=== PATIENT | female | born 1965 | race Caucasian/White ===

== ENCOUNTER 2022-07-01 17:33 | Inpatient (IN) | payer MEDICAID ==
[~2022-07-01] VITALS: Ht 165.1 cm; Wt 68.9 kg
[~2022-07-01 17:33] MED LIST: IOHEXOL-350 100 ML VIAL IV ONE
--- NOTE | 2022-07-01 19:40 | NUR ---
MICHAELA FROM [facility] C/O +SI NEEDS PSYCH EVAL. PATIENT PLACED COMFORTABLY IN BED. VITALS CHECKED. PATIENT IS COMPLAINING OF HEARING VOICES AND STOMACH PAIN. AWARE
[2022-07-01] MEDS ORDERED: IPRATROPIUM NEB FS 0.5 MG/2.5 ML AMPUL.NEB NEB ONE (20:30)
[2022-07-01] MEDS ORDERED: ALBUTEROL FS 2.5 MG/3 ML VIAL.NEB NEB ONE (20:30)
[2022-07-01] MEDS ORDERED: methylPREDNISolone SOD SUCC 125 MG/2ML VIAL IV ONE (20:30)
--- NOTE | 2022-07-01 20:51 | NUR ---
TRUSTEE OF ESTATE AT PT'S BEDSIDE
[2022-07-01 21:13] LABS: BASOPHILS # (AUTO) 0.1 K/uL (0.0-0.2); EOSINOPHILS % (AUTO) 2.3 % (0.0-6.0); HEMATOCRIT 24 % (33-45); HEMOGLOBIN 7.5 g/dL (11.5-14.8); LYMPHOCYTES # (AUTO) 2.8 K/uL (0.8-4.8); LYMPHOCYTES % (AUTO) 43.6 % (20.0-44.0); MEAN CORPUSCULAR HGB CONC 31 g/dl (31.0-36.0); MEAN CORPUSCULAR VOLUME 94 fL (82-100); MONOCYTES # (AUTO) 0.9 K/uL (0.1-1.30); MONOCYTES % (AUTO) 13.2 % (2.0-12.0); NEUTROPHILS # (AUTO) 2.6 K/uL (1.8-8.9); NEUTROPHILS % (AUTO) 39.9 % (43.0-81.0); PLATELET COUNT (AUTO) 641 K/uL (150-450); RED BLOOD CELL COUNT(AUTO) 2.53 MIL/uL (4.0-5.2); WHITE BLOOD COUNT (AUTO) 6.5 K/uL (4.3-11.0)
[2022-07-01 21:19] LABS: CALCIUM, SERUM 8.5 mg/dL (8.5-10.1); CARBON DIOXIDE 30 mmol/L (21-32); CHLORIDE 105 mmol/L (98-107); CREATININE 1.1 mg/dL (0.6-1.3); GLUCOSE 84 mg/dL (74-106); POTASSIUM 3.9 mmol/L (3.5-5.1); SODIUM SERUM 138 mmol/L (136-145); UREA NITROGEN, BLOOD 16 mg/dL (7-18)
[2022-07-01] MEDS ORDERED: methylPREDNISolone SOD SUCC 125 MG/2ML VIAL ONE (21:21)
[2022-07-01 21:25] LABS: ALANINE AMINOTRANSFERASE 8 U/L (12-78); ALBUMIN 1.5 g/dL (3.4-5.0); ALKALINE PHOSPHATASE 97 U/L (46-116); ASPARTATE AMINOTRANSFERASE 16 U/L (15-37); BILIRUBIN,DIRECT 0.1 mg/dL (0.0-0.2); BILIRUBIN,TOTAL 0.2 mg/dL (0.2-1.0); TOTAL PROTEIN, SERUM 7.2 g/dL (6.4-8.2)
--- NOTE | 2022-07-01 21:41 | NUR ---
IV CANNULA ON LEFT FA G22. IV MEDS GIVEN
[2022-07-01] MEDS ORDERED: CEFTRIAXONE 1GM BAG (ER ONLY) 50 ML IV ONE (21:43)
[2022-07-01] MEDS ORDERED: CEFTRIAXONE 1 G in IV D5W 50 ML IV ONE (22:00)
--- NOTE | 2022-07-01 22:12 | NUR ---
COVID SWAB AND INFLUENZA SWAB DONE AND SENT TO LAB
[2022-07-01] MEDS ORDERED: IPRATROPIUM NEB FS 0.5 MG/2.5 ML AMPUL.NEB ONE (22:22)
[2022-07-01] MEDS ORDERED: ALBUTEROL FS 2.5 MG/3 ML VIAL.NEB ONE (22:22)
--- NOTE | 2022-07-01 22:30 | NUR ---
RT AT BEDSIDE
[2022-07-01] MEDS ORDERED: MAG HYDROX/AL HYDROX/SIMETH 30 ML UDC PO PRN (23:30)
[2022-07-01] MEDS ORDERED: Z GUARD REMEDY 4 OZ OINT TP PRN (23:30)
[2022-07-01] MEDS ORDERED: ACETAMINOPHEN 325 MG TABLET PO PRN (23:30)
[2022-07-01] MEDS ORDERED: ALBUTEROL FS 2.5 MG/0.5 ML VIAL.NEB NEB PRN (23:30)
[2022-07-01] MEDS ORDERED: ZOLPIDEM TARTRATE 5 MG TABLET PO PRN (23:30)
[2022-07-01] MEDS ORDERED: ONDANSETRON HCL/PF 4 MG/2 ML VIAL IVP PRN (23:30)
[2022-07-01] MEDS ORDERED: IPRATROPIUM NEB FS 0.5 MG/2.5 ML AMPUL.NEB NEB PRN (23:30)
[2022-07-01] MEDS ORDERED: MAGNESIUM HYDROXIDE 30 ML UDC PO PRN (23:30)
--- NOTE | 2022-07-02 00:05 | NUR ---
IV CANNULA G20 INSERTED ON RIGHT WRIST
[2022-07-02] MEDS ORDERED: LIDOCAINE VISCOUS 2% UD 15 ML UDC ONE (00:09)
[2022-07-02] MEDS ORDERED: MAG HYDROX/AL HYDROX/SIMETH 30 ML UDC PO ONE (00:30)
[2022-07-02] MEDS ORDERED: LIDOCAINE VISCOUS 2% UD 15 ML UDC MM ONE (00:30)
[2022-07-02] MEDS ORDERED: IPRATROPIUM NEB FS 0.5 MG/2.5 ML AMPUL.NEB NEB ONE (00:30)
[2022-07-02] MEDS ORDERED: ALBUTEROL FS 2.5 MG/3 ML VIAL.NEB NEB ONE (00:30)
[2022-07-02 00:36] LABS: ABG BASE EXCESS 2.6 mmol/L; ABG PCO2 35.2 mmHg (35.0-45.0); ABG PH 7.487 (7.350-7.450); ABG PO2 61.4 mmHg (75.0-100.0); COHb 0.1 % (0.5-1.5); MetHb 0.4 % (0.0-1.5); O2Hb 90.9 % (94.0-97.0); SITE, ABG Left Radial; VENT MODE, BG 3L NASAL CANNULA
[2022-07-02] MEDS ORDERED: ALBUTEROL FS 2.5 MG/3 ML VIAL.NEB ONE (00:42)
[2022-07-02] MEDS ORDERED: IV NS 0.9% 1,000 ML BAG IV ONE (01:00)
--- NOTE | 2022-07-02 01:29 | NUR ---
URINE SPECIMEN SENT TO LAB
[2022-07-02] MEDS ORDERED: FAMOTIDINE/PF INJ 20 MG/2 ML VIAL IV ONE ×2 (01:30→01:32)
[2022-07-02] MEDS ORDERED: LEVOFLOXACIN 500 MG /D5W 100ML 100 ML IV ONE (01:32)
[2022-07-02 01:45] LABS: ALBUMIN 1.6 g/dL (3.4-5.0); BILIRUBIN,DIRECT 0.1 mg/dL (0.0-0.2); BILIRUBIN,TOTAL 0.2 mg/dL (0.2-1.0); CALCIUM, SERUM 8.6 mg/dL (8.5-10.1); CREATININE 1.2 mg/dL (0.6-1.3); PHOSPHORUS 2.7 mg/dL (2.5-4.9); POTASSIUM 3.6 mmol/L (3.5-5.1); TOTAL PROTEIN, SERUM 7.8 g/dL (6.4-8.2)
[2022-07-02] MEDS ORDERED: LEVOFLOXACIN 500 MG /D5W 100ML 500 MG in PREMIX 1 EA IV SCH (02:00)
[2022-07-02 02:13] LABS: BILIRUBIN,URINE NEGATIVE (NEGATIVE); COLOR,URINE YELLOW (YELLOW); LEUKOCYTE ESTERASE ,URINE NEGATIVE (NEGATIVE); NITRITE, URINE NEGATIVE (NEGATIVE); PROTEIN,URINE NEGATIVE (NEGATIVE); UGLUCOSE NEGATIVE (NEGATIVE); UROBILINOGEN,URINE 0.2 EU/dL (0.2)
[2022-07-02] MEDS ORDERED: DEXTROSE 50%-WATER 50 ML DISP.SYRIN IV PRN (02:30)
[2022-07-02 02:31] LABS: BACTERIA,URINE Rare /HPF (None Seen); RBC,URINE 0-2 /HPF (0-2); SQUAMOUS EPITHELIAL CELL,UR Many /HPF (None Seen)
[2022-07-02] MEDS ORDERED: methylPREDNISolone SOD SUCC 40 MG/ML VIAL ONE ×3 (04:22→18:17)
[2022-07-02] MEDS ORDERED: methylPREDNISolone SOD SUCC 40 MG/ML VIAL IV SCH (05:00)
[2022-07-02 05:01] LABS: BAND % (MANUAL) 2 % (0.0-5.0); BASOPHILS % (MANUAL) 0 % (0.0-2.0); EOSINOPHILS % (MANUAL) 1 % (0-4); LYMPHOCYTES % (MANUAL) 47 % (16-48); MONOCYTES % (MANUAL) 7 % (0-11.0); NEUTROPHILS % (MANUAL) 43 (42-76)
[2022-07-02 05:10] LABS: BASOPHILS % (AUTO) 0.3 % (0.0-2.0); HEMATOCRIT 24 % (33-45); HEMOGLOBIN 7.6 g/dL (11.5-14.8); LYMPHOCYTES # (AUTO) 0.3 K/uL (0.8-4.8); LYMPHOCYTES % (AUTO) 4.5 % (20.0-44.0); MEAN CORPUSCULAR HGB CONC 32 g/dl (31.0-36.0); MEAN CORPUSCULAR VOLUME 93 fL (82-100); MONOCYTES # (AUTO) 0.1 K/uL (0.1-1.30); MONOCYTES % (AUTO) 1.2 % (2.0-12.0); NEUTROPHILS # (AUTO) 5.8 K/uL (1.8-8.9); PLATELET COUNT (AUTO) 560 K/uL (150-450); RED BLOOD CELL COUNT(AUTO) 2.57 MIL/uL (4.0-5.2); WHITE BLOOD COUNT (AUTO) 6.2 K/uL (4.3-11.0)
[2022-07-02] MEDS: BLOOD SUGAR DIAGNOSTIC 1 EACH STRIP IN SCH ×3 (07:59→18:30)
[2022-07-02] MEDS ORDERED: FERR325T23 PO (08:00)
[2022-07-02] MEDS ORDERED: MAGN400O6 PO (08:00)
[2022-07-02] MEDS ORDERED: MULT-447 PO (08:00)
[2022-07-02] MEDS ORDERED: OLAN5TAB3 PO (08:00)
[2022-07-02] MEDS ORDERED: BISA10SU11 RC (08:00)
[2022-07-02] MEDS ORDERED: IPRA3AMP23 IH (08:00)
[2022-07-02] MEDS ORDERED: INSU100V39 SQ (08:00)
[2022-07-02] MEDS ORDERED: CLON1TAB12 PO (08:00)
[2022-07-02] MEDS ORDERED: NICO-676 TD (08:00)
[2022-07-02] MEDS ORDERED: DOCU-141 PO (08:00)
[2022-07-02] MEDS ORDERED: ACET-2605 PO (08:00)
[2022-07-02] MEDS ORDERED: NA P133E RC (08:00)
[2022-07-02] MEDS ORDERED: CRAN425C6 PO (08:00)
[2022-07-02] MEDS ORDERED: MIDO10TA PO (08:00)
[2022-07-02] MEDS ORDERED: ATOR40TA PO (08:00)
[2022-07-02] MEDS ORDERED: ACET-868 PO (08:00)
[2022-07-02] MEDS ORDERED: MAG30ORA PO (08:00)
[2022-07-02] MEDS ORDERED: ESCI10TA PO (08:00)
[2022-07-02] MEDS ORDERED: MELA5TAB PO (08:00)
[2022-07-02] MEDS ORDERED: OLAN7.5T3 PO (08:00)
[2022-07-02] MEDS ORDERED: METO25TA20 PO (08:00)
[2022-07-02] MEDS ORDERED: MENT71OI2 TP (08:00)
[2022-07-02] MEDS ORDERED: QUET25TA PO (08:01)
[2022-07-02] MEDS ORDERED: PREG50CA PO (08:01)
[2022-07-02] MEDS ORDERED: ONDA4TAB5 PO (08:01)
[2022-07-02] MEDS ORDERED: PANT20TA2 PO (08:01)
[2022-07-02] MEDS ORDERED: SUCR1TAB PO (08:01)
[2022-07-02] MEDS ORDERED: OXCA150T5 PO (08:01)
[2022-07-02] MEDS ORDERED: HYDROCODONE/APAP 10/325MG TABLET ONE ×2 (08:17→15:41)
[2022-07-02] MEDS: HYDROCODONE/APAP 10/325MG TABLET PO PRN ×2 (08:26→15:45)
[2022-07-02] MEDS ORDERED: PANTOPRAZOLE 40 MG VIAL IV SCH (09:00)
--- NOTE | 2022-07-02 09:16 | NUR ---
DR TRAVIS CAME IN AND SAW THE PATIENT, WANT AN ISO ROOM, JOSETTE STACY INFORMED
[2022-07-02] MEDS ORDERED: PANTOPRAZOLE 40 MG VIAL ONE (09:53)
--- NOTE | 2022-07-02 09:59 | NUR ---
SW received consult request for suicidal ideation. SW will follow up today.
[2022-07-02] MEDS: methylPREDNISolone SOD SUCC 40 MG/ML VIAL IV SCH ×2 (10:45→17:00)
[2022-07-02 10:55] LABS: BAND % (MANUAL) 5 % (0.0-5.0); LYMPHOCYTES % (MANUAL) 6 % (16-48); MONOCYTES % (MANUAL) 2 % (0-11.0); NEUTROPHILS % (MANUAL) 87 (42-76)
[2022-07-02] MEDS: CEFTRIAXONE 2 G in IV D5W 100 ML IV SCH (14:20)
--- NOTE | 2022-07-02 14:27 | NUR ---
School Business Manager Note: SW received a consult request for suicical ideation. Pt. is a 56 year old white female who was seen in the ER for difficulty breathing. SW met with pt at bedside. PT was having a panic attack at this time. SW supported to with deep breathing to regulate pt to do assessment in which pt was reveptive. Pt was alert and oriented x3. Pt stated eh has visual and auditory hallucinations. Pt shared he psychiatric hx (schisophrenia, depression, anxiety, ptsd). PT ids taking seroquol, ativan, and depocot. Pt denied suicidal and homicidal ideation. PT is being addmited to the hospital. ARYA discussed with nurse. ARYA called Anastasiya at [phone] with no answer and left a voicemail. ARYA offered patient counceling resources in which pt. accepted.
[2022-07-02] MEDS ORDERED: VANCOMYCIN 1 GM VIAL ONE (15:27)
[2022-07-02] MEDS: VANCOMYCIN 1 GM in IV D5W 250 ML IV SCH (15:30)
[2022-07-02 18:32] LABS: FERRITIN 175 ng/mL (8-388)
[2022-07-03] MEDS: VANCOMYCIN 1 GM in IV D5W 250 ML IV SCH ×2 (03:39→16:22)
[2022-07-03] MEDS ORDERED: HYDROCODONE/APAP 10/325MG TABLET ONE (03:47)
[2022-07-03] MEDS ORDERED: ONDANSETRON HCL/PF 4 MG/2 ML VIAL ONE (03:47)
[2022-07-03] MEDS: HYDROCODONE/APAP 10/325MG TABLET PO PRN ×3 (03:55→22:28)
--- NOTE | 2022-07-03 04:11 | NUR ---
REQUESTED A MIDLINE NURSE FOR AM FROM RN PATTERN HAND
--- NOTE | 2022-07-03 04:12 | NUR ---
REINSERT IV CANNULA G24 ON LEFT FA. BOTH OLD LINES NOT WORKING
--- NOTE | 2022-07-03 04:30 | NUR ---
APPLIQUER ZIGZAG AT BEDSIDE
[2022-07-03] MEDS: BLOOD SUGAR DIAGNOSTIC 1 EACH STRIP IN SCH ×5 (05:00→22:33)
[2022-07-03 05:19] LABS: BASOPHILS # (AUTO) 0.2 K/uL (0.0-0.2); BASOPHILS % (AUTO) 2.3 % (0.0-2.0); EOSINOPHILS % (AUTO) 7.5 % (0.0-6.0); HEMATOCRIT 23 % (33-45); HEMOGLOBIN 7.5 g/dL (11.5-14.8); LYMPHOCYTES # (AUTO) 0.9 K/uL (0.8-4.8); LYMPHOCYTES % (AUTO) 9.2 % (20.0-44.0); MEAN CORPUSCULAR HGB CONC 32 g/dl (31.0-36.0); MEAN CORPUSCULAR VOLUME 93 fL (82-100); MONOCYTES # (AUTO) 0.4 K/uL (0.1-1.30); MONOCYTES % (AUTO) 4.4 % (2.0-12.0); NEUTROPHILS # (AUTO) 7.1 K/uL (1.8-8.9); NEUTROPHILS % (AUTO) 76.6 % (43.0-81.0); PLATELET COUNT (AUTO) 546 K/uL (150-450); RED BLOOD CELL COUNT(AUTO) 2.51 MIL/uL (4.0-5.2); WHITE BLOOD COUNT (AUTO) 9.3 K/uL (4.3-11.0)
[2022-07-03 05:27] LABS: CALCIUM, SERUM 7.8 mg/dL (8.5-10.1); CREATININE 1.1 mg/dL (0.6-1.3); MAGNESIUM 2.1 mg/dL (1.8-2.4); PHOSPHORUS 2.9 mg/dL (2.5-4.9)
[2022-07-03] MEDS ORDERED: PANTOPRAZOLE 40 MG TABLET.DR PO ONE (09:40)
[2022-07-03] MEDS ORDERED: methylPREDNISolone SOD SUCC 40 MG/ML VIAL ONE (09:40)
[2022-07-03] MEDS: PANTOPRAZOLE 40 MG TABLET.DR PO SCH (09:40)
[2022-07-03] MEDS: methylPREDNISolone SOD SUCC 40 MG/ML VIAL IV SCH ×2 (09:45→16:23)
--- NOTE | 2022-07-03 11:33 | NUR ---
dr. shay on site and tele consult done.
--- NOTE | 2022-07-03 11:35 | NUR ---
Dr. Alexander spoke to patient and verbalized "I am not suicidal".
--- NOTE | 2022-07-03 13:58 | NUR ---
report given to Red RN to continue care.
--- NOTE | 2022-07-03 14:27 | NUR ---
wheeled patient via gurney accompanied by rn and emt in no distress. RN assigned at bedside to assume care.
[2022-07-03] MEDS: DIVALPROEX SODIUM 250 MG TABLET.DR PO SCH ×2 (15:14→16:23)
[2022-07-03] MEDS: risperiDONE 0.25 MG TABLET PO SCH ×2 (15:14→16:24)
[2022-07-03] MEDS: CEFTRIAXONE 2 G in IV D5W 100 ML IV SCH (15:29)
[2022-07-03 16:00] VITALS: BP 116/66
--- NOTE | 2022-07-03 19:05 | NUR ---
PACKAGING MANAGERMILLINERY DEPARTMENT MANAGER NOTE: RECEIVED PT. VIA PARAMJIT FROM ER AT 1420. REPORT GIVEN BY MOBILE DEVELOPMENT MANAGER MONIQUE. PT. REMAINS AWAKE, AOX3-4, NO COMPLAINTS OF PAIN/DISCOMFORT AT THIS TIME. COMPLAINED OF 6/10 ABDOMINAL PAIN AT 1515. NORCO 10-325 GIVEN. VERBALIZED PAIN RELIEF NOW. ON 02 VIA NASAL CANNULA AT 4L/MIN, NO S/S OF RESPIRATORY DISTRESS. DEV MANAGER READS NSR. ON DIAPER, VOIDED 1X SO FAR WITH YELLOW URINE NOTED. SKIN INTACT. IV ACCESS ON L FA #24G, PATENT AND SALINE LOCKED. IV DRESSING C/D/I, WITH NO S/S OF INFILTRATION. PT. ON ISOLATION FOR R/O TB. SAFETY MEASURES MAINTAINED: BED IN LOWEST AND LOCKED POSITION, SIDE RAILS UPX2, HOB ELEVATED AT 30 DEGREES, BED ALARM ON, CALL LIGHT AND BELONGINGS WITHIN REACH. WILL ENCOURAGE FREQUENT REPOSITIONING IN BED. ENDORSED CONTINUITY OF CARE TO DIRECTOR OF BUSINESS APPLICATIONS RN.
[2022-07-03] MEDS: INSULIN REGULAR, HUMAN 100 UNIT/ML 3 ML VIAL SQ PRN (19:16)
--- NOTE | 2022-07-03 19:30 | NUR ---
RN OPENING NOTE PT A&OX4. PT STATES SHE IS SOB BUT O2 SAT OF 100% ON NC AT 5 LPM. SKIN IS WARM AND DRY. LFA 24 G IV INTACT AND PATENT. DISCUSSED WITH RT TO COLLECT SPUTUM. DENIES OTHER NEEDS AT THIS TIME. SAFETY PRECAUTIONS IN PLACE. BED LOCKED AND AT LOWEST LEVEL. X2 RAILS UP AND CALL LIGHT WITHIN REACH.
[2022-07-03 20:00] VITALS: BP 124/76
--- NOTE | 2022-07-03 20:22 | NUR ---
RN NOTE DISCUSSED WITH RT ABOUT POSSIBLE SUCTIONING DUE TO PT NOT BEING ABLE TO PRODUCE SUFFICIENT SAMPLE. RT STATED THAT THEY WILL LISTEN TO PT'S LUNGS AND SEE IF THEY ARE ABLE TO OBTAIN SPUTUM.
--- NOTE | 2022-07-03 20:49 | NUR ---
RN NOTE PT DESATTED TO 79% WHEN CHANGING PT AND WAS ST ON MONITOR. PT PLACED ON NRB AT 6 LPM AND NOW AT 96%.
[2022-07-04] VITALS (7 sets, daily range): BP systolic 101–152; BP diastolic 60–89
--- NOTE | 2022-07-04 00:09 | NUR ---
07/03 @5097 SPUTUM SAMPLE COLLECTED RN NOTIFIED.
--- NOTE | 2022-07-04 00:10 | NUR ---
RN NOTE PT PLACED ON FACE MASK AT 10 LPM AND TOLERATING WELL.
[2022-07-04] MEDS: VANCOMYCIN 1 GM in IV D5W 250 ML IV SCH ×2 (02:58→15:00)
[2022-07-04] MEDS: HYDROCODONE/APAP 10/325MG TABLET PO PRN ×3 (04:36→18:04)
--- NOTE | 2022-07-04 06:42 | NUR ---
RN CLOSING NOTE PT A&OX4. RESPIRATIONS SHALLOW AND LABORED ON SIMPLE MASK AT 10 LPM WITH O2 SAT OF 96%. C/O ABDOMINAL PAIN AND GIVEN NORCO FOR PAIN MANAGEMENT. SKIN IS WARM AND DRY. LFA 24 G INTACT. BED LOCKED AND AT LOWEST LEVEL WITH 2 RAILS UP. CALL LIGHT WITHIN REACH.
[2022-07-04 07:24] LABS: BASOPHILS % (AUTO) 0.1 % (0.0-2.0); EOSINOPHILS % (AUTO) 0.1 % (0.0-6.0); HEMATOCRIT 27 % (33-45); HEMOGLOBIN 8.5 g/dL (11.5-14.8); LYMPHOCYTES # (AUTO) 2.2 K/uL (0.8-4.8); LYMPHOCYTES % (AUTO) 21.6 % (20.0-44.0); MEAN CORPUSCULAR HGB CONC 31 g/dl (31.0-36.0); MEAN CORPUSCULAR VOLUME 95 fL (82-100); MONOCYTES % (AUTO) 10.3 % (2.0-12.0); NEUTROPHILS # (AUTO) 6.8 K/uL (1.8-8.9); NEUTROPHILS % (AUTO) 67.9 % (43.0-81.0); PLATELET COUNT (AUTO) 563 K/uL (150-450); RED BLOOD CELL COUNT(AUTO) 2.88 MIL/uL (4.0-5.2)
[2022-07-04 07:34] LABS: CALCIUM, SERUM 8.5 mg/dL (8.5-10.1); CREATININE 0.9 mg/dL (0.6-1.3); PHOSPHORUS 2.4 mg/dL (2.5-4.9); POTASSIUM 3.8 mmol/L (3.5-5.1)
[2022-07-04] MEDS: BLOOD SUGAR DIAGNOSTIC 1 EACH STRIP IN SCH ×4 (07:55→22:00)
[2022-07-04] MEDS: risperiDONE 0.25 MG TABLET PO SCH ×3 (07:59→17:26)
[2022-07-04] MEDS: methylPREDNISolone SOD SUCC 40 MG/ML VIAL IV SCH ×2 (07:59→17:26)
[2022-07-04] MEDS: PANTOPRAZOLE 40 MG TABLET.DR PO SCH (07:59)
[2022-07-04] MEDS: DIVALPROEX SODIUM 250 MG TABLET.DR PO SCH ×3 (07:59→17:26)
[2022-07-04] MEDS: INSULIN REGULAR, HUMAN 100 UNIT/ML 3 ML VIAL SQ PRN ×2 (08:52→18:13)
[2022-07-04] MEDS: CEFTRIAXONE 2 G in IV D5W 100 ML IV SCH (13:08)
--- NOTE | 2022-07-04 15:11 | NUR ---
RN NOTE PER PHARMACY. PENDING VANCO TROUGH, DO NOT ADMINISTER AT THIS TIME.
--- NOTE | 2022-07-04 18:55 | NUR ---
RN CLOSING NOTE PT A&OX4. RESPIRATIONS SHALLOW AND LABORED ON SIMPLE MASK AT 8 LPM WITH O2 SAT OF 96%. C/O ABDOMINAL PAIN AND GIVEN NORCO FOR PAIN MANAGEMENT. SKIN IS WARM AND DRY. LFA 24 G INTACT. BED LOCKED AND AT LOWEST LEVEL WITH 2 RAILS UP. CALL LIGHT WITHIN REACH. WILL ENDORSE CONTINUITY OF CARE TO LUMBER PULLER.
[2022-07-05 00:01] VITALS: BP 118/64
[2022-07-05] MEDS: HYDROCODONE/APAP 10/325MG TABLET PO PRN ×4 (00:13→22:34)
[2022-07-05] MEDS: VANCOMYCIN HCL 0.75 GM in IV D5W 250 ML IV SCH ×2 (03:48→17:13)
[2022-07-05 04:00] VITALS: BP 102/57
[2022-07-05] MEDS ORDERED: DOSE PER PHARMACY MICAFUNGIN 1 EA XX PRN (07:00)
[2022-07-05] MEDS: BLOOD SUGAR DIAGNOSTIC 1 EACH STRIP IN SCH ×4 (07:50→22:36)
[2022-07-05 08:00] VITALS: BP 126/74
--- NOTE | 2022-07-05 08:21 | NUR ---
RN NOTE NO IV ACCESS ON PATIENT, MULTIPLE ATTEMPTS MADE. NOTIFIED CHARGE NURSE. NURSING CHURCH SECRETARY AWARE. MIDLINE INSERTION REQUESTED.
[2022-07-05] MEDS: DIVALPROEX SODIUM 250 MG TABLET.DR PO SCH ×3 (08:33→17:13)
[2022-07-05] MEDS: PANTOPRAZOLE 40 MG TABLET.DR PO SCH (08:33)
[2022-07-05] MEDS: risperiDONE 0.25 MG TABLET PO SCH ×3 (08:33→17:13)
[2022-07-05] MEDS: INSULIN REGULAR, HUMAN 100 UNIT/ML 3 ML VIAL SQ PRN ×2 (08:57→14:38)
[2022-07-05] MEDS: methylPREDNISolone SOD SUCC 40 MG/ML VIAL IV SCH ×2 (09:06→17:13)
[2022-07-05] MEDS: MICAFUNGIN SODIUM 100 MG in IV NS 0.9% 100 ML IV SCH (09:06)
--- NOTE | 2022-07-05 10:00 | NUR ---
RT NOTE: SPUTUM SAMPLE COLLECTED. LAB NOTIFIED.
[2022-07-05 12:00] VITALS: BP 115/71
[2022-07-05] MEDS: CEFTRIAXONE 2 G in IV D5W 100 ML IV SCH (13:38)
[2022-07-05 14:38] LABS: BASOPHILS % (AUTO) 0.3 % (0.0-2.0); EOSINOPHILS % (AUTO) 0.4 % (0.0-6.0); HEMATOCRIT 27 % (33-45); HEMOGLOBIN 8.4 g/dL (11.5-14.8); LYMPHOCYTES # (AUTO) 0.9 K/uL (0.8-4.8); MEAN CORPUSCULAR HGB CONC 32 g/dl (31.0-36.0); MEAN CORPUSCULAR VOLUME 92 fL (82-100); MONOCYTES # (AUTO) 0.1 K/uL (0.1-1.30); MONOCYTES % (AUTO) 1.1 % (2.0-12.0); NEUTROPHILS # (AUTO) 4.8 K/uL (1.8-8.9); NEUTROPHILS % (AUTO) 83.2 % (43.0-81.0); PLATELET COUNT (AUTO) 512 K/uL (150-450); RED BLOOD CELL COUNT(AUTO) 2.89 MIL/uL (4.0-5.2); WHITE BLOOD COUNT (AUTO) 5.7 K/uL (4.3-11.0)
--- NOTE | 2022-07-05 15:00 | NUR ---
RT NOTE: SPUTUM SAMPLE COLLECTED. RN NOTIFIED.
[2022-07-05 15:42] LABS: CALCIUM, SERUM 8.1 mg/dL (8.5-10.1); CREATININE 1.1 mg/dL (0.6-1.3); MAGNESIUM 1.6 mg/dL (1.8-2.4); PHOSPHORUS 1.7 mg/dL (2.5-4.9)
[2022-07-05 16:00] VITALS: BP 116/79
--- NOTE | 2022-07-05 16:37 | NUR ---
RN NOTE RADIOLOGY NOTIFIED OF PATIENT RESULT OF DVT IN RIGHT MID FEMORAL VEIN. NOTIFIED LESA BURLESON, CALLED [facility], AWAITING CALL BACK.
--- NOTE | 2022-07-05 17:08 | NUR ---
RN NOTE RECEIVED TELEPHONE ORDER FROM MD TO START HEPARIN DRIP, AND REMOVED NG TUBE.CHARGE NURSE AWARE.
--- NOTE | 2022-07-05 19:14 | NUR ---
RN CLOSING NOTE PATIENT IN BED AOX4. BREATHING ON 6L ON NC AT 96%. NO PAIN NOTED AT THIS TIME. ALL ORDERS CARRIED OUT. MICHAEL MIDLINE INTACT. ALL SAFETY MEASURES IN PLACE. WILL ENDORSE CONTINUITY OF CARE TO BIG DATA LEAD NURSE
--- NOTE | 2022-07-05 19:35 | NUR ---
RN OPENING NOTE RECEIVED PATIENT IN BED; AWAKE, A/O X 4. ON O2 INHALATION @ 6 LPM VIA NASAL CANNULA. BREATHING EVEN AND NONLABORED. NOT IN ANY FORM OF RESPIRATORY DISTRESS. DENIES ANY PAIN OR DISCOMFORT AT THIS TIME. ON TELE MONITORING SR HR-68 BPM. WITH RIGHT UPPER ARM MIDLINE 18G; PATENT, INTACT AND SALINE LOCKED. ABLE TO MAKE NEEDS KNOWN. SAFETY MEASURES IMPLEMENTED: CALL LIGHT AND TABLE WITHIN REACH, SIDE RAILS UP X 2, BED IN LOWEST LOCKED POSITION. WILL CONTINUE TO MONITOR.
[2022-07-05 20:00] VITALS: BP 117/68
[2022-07-05] MEDS ORDERED: HEPARIN SODIUM, PORCINE 5000 UNITS/1 ML VIAL IV ONE (20:00)
[2022-07-05] MEDS: HEPARIN INFUSION/D5W 500 ML IV PRN (21:06)
--- NOTE | 2022-07-05 21:06 | NUR ---
RN NOTE HEPARIN DRIP INFUSION IN D5W 500 ML STARTED RUNNING THROUGH MICHAEL MIDLINE 18G PATENT AND INTACT REGULATED @ 1100 UNITS/HR = 22ML/HR; FLUSHES WELL. NO INFILTRATION OR BLEEDING NOTED. WILL CONTINUE TO MONITOR.
[2022-07-06] VITALS: BP 106/66
--- NOTE | 2022-07-06 02:00 | NUR ---
RN NOTES 0200 Spoke to Kat, informatics educator to draw patient at 0230 for both vancomycin level and APTT; will let her know if AML can be drawn at the same time. 0250 informatics educator not in yet; called lab to draw APTT and vancomycin level only NOT AML yet and to make sure patient is drawn peripherally since patient is on heparin drip. 0415 lab called for APTT 170; per primary RN it was drawn from midline despite instructions to Kat to do it peripherally. Heparin held and notified MD. 0435 Dr. Leon ordered a STAT APTT peripherally; lab notified but did not arrive until after 0500 by then patient refused to be drawn by a male informatics educator. 0630 blood not drawn yet; female informatics educator came and stated patient is refusing. Primary RN Angelica explained to patient again the need for blood to be drawn. 0635 patient finally allowed blood to be drawn peripherally. heparin still on hold; Dr. Leon made aware.
[2022-07-06 03:53] LABS: BAND % (MANUAL) 4 % (0.0-5.0); EOSINOPHILS % (MANUAL) 0 % (0-4); LYMPHOCYTES % (MANUAL) 16 % (16-48); MONOCYTES % (MANUAL) 5 % (0-11.0); NEUTROPHILS % (MANUAL) 75 (42-76)
[2022-07-06 04:00] VITALS: BP 115/83
[2022-07-06] MEDS: VANCOMYCIN HCL 0.75 GM in IV D5W 250 ML IV SCH ×2 (04:07→11:00)
--- NOTE | 2022-07-06 04:08 | NUR ---
RN NOTE VANCOMYCIN TROUGH RESULT - 21. VANCOMYCIN 0.75 GM IN IV D5W 250 HOLD PER ORDER.
--- NOTE | 2022-07-06 04:30 | NUR ---
RN NOTE 0300 APTT WAS DRAWN FROM [facility] WITH HEPARIN DRIP INFUSION. APTT RESULT WAS 170. MAITE GARCIA NP MADE AWARE. WITH ORDER TO REPEAT DRAW OF APTT.
--- NOTE | 2022-07-06 06:38 | NUR ---
RN NOTE APTT REDRAWN PERIPHERALLY. WILL ENDORSE TO ONCOMING NURSE.
--- NOTE | 2022-07-06 07:00 | NUR ---
RN CLOSING NOTE PATIENT IN BED; AWAKE, A/O X 4. ON O2 INHALATION @ 6 LPM VIA NASAL CANNULA; TOLERATING WELL. BREATHING EQUAL AND UNLABORED. IN NO ACUTE DISTRESS. NO C/O ANY PAIN OR DISCOMFORT AT THIS TIME. ON TELE MONITORING SR HR-70 BPM. WITH RIGHT UPPER ARM MIDLINE 18G; PATENT, INTACT AND SALINE LOCKED. SAFETY MEASURES MAINTAINED: CALL LIGHT AND TABLE WITHIN REACH, SIDE RAILS UP X 2, BED IN LOWEST LOCKED POSITION. ENDORSED TO MORNING SHIFT FOR KELSEY.
[2022-07-06 08:00] VITALS: BP 132/63
[2022-07-06] MEDS: DIVALPROEX SODIUM 250 MG TABLET.DR PO SCH ×3 (09:02→16:33)
[2022-07-06] MEDS: PANTOPRAZOLE 40 MG TABLET.DR PO SCH (09:02)
[2022-07-06] MEDS: risperiDONE 0.25 MG TABLET PO SCH ×3 (09:02→16:33)
[2022-07-06] MEDS: methylPREDNISolone SOD SUCC 40 MG/ML VIAL IV SCH ×2 (09:02→16:33)
[2022-07-06] MEDS: BLOOD SUGAR DIAGNOSTIC 1 EACH STRIP IN SCH ×4 (09:03→22:55)
[2022-07-06] MEDS: MICAFUNGIN SODIUM 100 MG in IV NS 0.9% 100 ML IV SCH (09:03)
[2022-07-06] MEDS: HYDROCODONE/APAP 10/325MG TABLET PO PRN ×3 (09:14→17:59)
[2022-07-06 09:44] LABS: BASOPHILS % (AUTO) 0.3 % (0.0-2.0); EOSINOPHILS % (AUTO) 0.1 % (0.0-6.0); HEMATOCRIT 27 % (33-45); HEMOGLOBIN 8.4 g/dL (11.5-14.8); LYMPHOCYTES # (AUTO) 2.7 K/uL (0.8-4.8); LYMPHOCYTES % (AUTO) 37.7 % (20.0-44.0); MEAN CORPUSCULAR HGB CONC 31 g/dl (31.0-36.0); MEAN CORPUSCULAR VOLUME 92 fL (82-100); MONOCYTES # (AUTO) 0.7 K/uL (0.1-1.30); MONOCYTES % (AUTO) 10.4 % (2.0-12.0); NEUTROPHILS # (AUTO) 3.7 K/uL (1.8-8.9); NEUTROPHILS % (AUTO) 51.5 % (43.0-81.0); PLATELET COUNT (AUTO) 557 K/uL (150-450); WHITE BLOOD COUNT (AUTO) 7.2 K/uL (4.3-11.0)
--- NOTE | 2022-07-06 09:58 | NUR ---
APTT RESULTS 0630 47.4. HEPARIN DRIP HELD SINCE 0430. PMD MADE AWARE OF PHARMACY SUGGESTION TO RESTART DOSE AT 850U. APPROVED PHARMA SUGGESTION, T.O OBTAINED AND CARRIED OUT.
[2022-07-06 10:04] LABS: CALCIUM, SERUM 7.9 mg/dL (8.5-10.1); CREATININE 0.9 mg/dL (0.6-1.3); MAGNESIUM 1.8 mg/dL (1.8-2.4); PHOSPHORUS 1.6 mg/dL (2.5-4.9); POTASSIUM 3.8 mmol/L (3.5-5.1)
--- NOTE | 2022-07-06 10:10 | NUR ---
RN NOTE PT RESTARTED ON HEPARIN DRIP 850U/KG. WILL CONTINUE TO MONITOR. NEXT APTT 1600.
[2022-07-06 12:00] VITALS: BP 114/65
[2022-07-06] MEDS ORDERED: K PHOS NEUTRAL 250 MG TABLET PO ONE (12:30)
[2022-07-06] MEDS: CEFTRIAXONE 2 G in IV D5W 100 ML IV SCH (14:27)
[2022-07-06 16:00] VITALS: BP 122/63
[2022-07-06] MEDS ORDERED: HEPARIN SODIUM, PORCINE 1000 UNIT/1 ML VIAL IV ONE (18:30)
--- NOTE | 2022-07-06 19:18 | NUR ---
RN NOTES RECEIVED PT FOR CONTINUITY OF CARE. PATIENT A/OX4 IN NO S/SX OF ACUTE DISTRESS AT THIS TIME; CURRENTLY 6L OF O2 VIA NC; WITH 02 SAT >95% AT THIS TIME.WITH IV ACCESS ON R UA MIDLINE #18; PATENT, INTACT AND FLUSHING WELL. WITH HEPARIN DRIP RECEIVED @950 U/HR RUNNING PER PROTOCOL. ENSURE SAFETY MEASURES WITHIN THE SHIFT. PATIENT BED ALARM IS ON. HEAD OF BED ELEVATED. BED IS LOCKED, IN LOWEST POSITION AND SIDE RAILS UP. CALL LIGHT WITHIN REACH OF THE PATIENT. APPLICABLE ISOLATION PRECAUTIONS IN PLACE. WILL CONTINUE TO MONITOR AND REASSESS FOR ANY CHANGES AND WILL CARRY OUT ANY ONGOING AND ACTIVE MD ORDER.
--- NOTE | 2022-07-06 19:36 | NUR ---
RN NOTE PT APTT RESULTS 44.9. HEPARIN 2400 BOLUS GIVEN AND RATE INCREASED TO 100U PER POLICY PROTOCOL. CURRENT RATE 950U/HR.
[2022-07-06 20:00] VITALS: BP 107/70
[2022-07-06] MEDS: INSULIN REGULAR, HUMAN 100 UNIT/ML 3 ML VIAL SQ PRN (22:56)
[2022-07-07] VITALS: BP 113/70
[2022-07-07] MEDS: HYDROCODONE/APAP 10/325MG TABLET PO PRN ×4 (00:39→21:09)
--- NOTE | 2022-07-07 01:00 | NUR ---
RN NOTES NO PTT RESULT YET, FOLLOWED UP WITH LAB. MACHINE GRINDER AWARE
--- NOTE | 2022-07-07 02:30 | NUR ---
RN NOTES APPT RESULT: 109.6; PER HEPARIN DOSING ORDER; CRITERIA : f (91-130 SECONDS) HOLD HEPARIN FOR 1 HOUR, THEN DECREASE DRIP BY 200U/H. CURRENTLY HEPARIN DRIP RUNNING AT 950UNITS PER HOUR, THUS MAKING ADJUSTMENT TO 750UNITS/HR ONCE RESTARTED BY 0330. TIER OVER MADE AWARE.
[2022-07-07 04:00] VITALS: BP 115/68
[2022-07-07] MEDS: VANCOMYCIN HCL 0.75 GM in IV D5W 250 ML IV SCH ×2 (04:08→23:00)
--- NOTE | 2022-07-07 06:40 | NUR ---
RN CLOSING NOTE: PATIENT REMAINS IN ROOM IN NO SIGNS OF RESPIRATORY DISTRESS, PATIENT STILL ON 6L OF 02 VIA NC ;TOLERATING WELL SATURATING @ >95% SP02. RUNNING HEPARIN @75U/HR NEXT PTT DUE BY 0930AM. SAFETY MEASURES IMPLEMENTED, BED IN LOWEST POSITION, LOCKED, SIDE RAILS UP, CALL LIGHT WITHIN REACH. ALL NEEDS AND ORDERS ADDRESSED DURING THE SHIFT. IV ACCESS MAINTAINED INTACT, SECURED AND FLUSHING WELL. ALL DUE MEDS GIVEN ORDERED & SCHEDULED ; PATIENT TOLERATED WELL. PATIENT KEPT CLEAN AND COMFORTABLE WITHIN THE SHIFT. PATIENT ENDORSED TO INCOMING SHIFT RN WITH STABLE VITAL SIGN AND FOR CONTINUITY OF CARE.
[2022-07-07] MEDS: BLOOD SUGAR DIAGNOSTIC 1 EACH STRIP IN SCH ×4 (07:30→21:08)
[2022-07-07 07:59] LABS: BASOPHILS % (AUTO) 0.2 % (0.0-2.0); EOSINOPHILS % (AUTO) 0.1 % (0.0-6.0); HEMATOCRIT 24 % (33-45); HEMOGLOBIN 7.9 g/dL (11.5-14.8); LYMPHOCYTES # (AUTO) 3.1 K/uL (0.8-4.8); LYMPHOCYTES % (AUTO) 46.3 % (20.0-44.0); MEAN CORPUSCULAR HGB CONC 32 g/dl (31.0-36.0); MEAN CORPUSCULAR VOLUME 91 fL (82-100); MONOCYTES # (AUTO) 0.6 K/uL (0.1-1.30); MONOCYTES % (AUTO) 8.7 % (2.0-12.0); NEUTROPHILS # (AUTO) 2.9 K/uL (1.8-8.9); NEUTROPHILS % (AUTO) 44.7 % (43.0-81.0); PLATELET COUNT (AUTO) 487 K/uL (150-450); RED BLOOD CELL COUNT(AUTO) 2.68 MIL/uL (4.0-5.2); WHITE BLOOD COUNT (AUTO) 6.6 K/uL (4.3-11.0)
[2022-07-07 08:00] VITALS: BP 110/62
[2022-07-07 08:15] LABS: CREATININE 0.7 mg/dL (0.6-1.3); MAGNESIUM 1.9 mg/dL (1.8-2.4); PHOSPHORUS 2.6 mg/dL (2.5-4.9); POTASSIUM 4.1 mmol/L (3.5-5.1)
[2022-07-07] MEDS: risperiDONE 0.25 MG TABLET PO SCH ×3 (08:18→16:12)
[2022-07-07] MEDS: methylPREDNISolone SOD SUCC 40 MG/ML VIAL IV SCH ×2 (08:18→16:12)
[2022-07-07] MEDS: MICAFUNGIN SODIUM 100 MG in IV NS 0.9% 100 ML IV SCH (08:18)
[2022-07-07] MEDS: DIVALPROEX SODIUM 250 MG TABLET.DR PO SCH ×3 (08:18→16:12)
[2022-07-07] MEDS: PANTOPRAZOLE 40 MG TABLET.DR PO SCH (08:18)
[2022-07-07] MEDS: HEPARIN INFUSION/D5W 500 ML IV PRN (08:21)
--- NOTE | 2022-07-07 10:46 | NUR ---
RN NOTE APTT 24.7. PER PROTOCOL, PRIMARY PROVIDER NOTIFIED. AWAITING RESPONSE FOR SHAMIKA BURLESON.
[2022-07-07 12:00] VITALS: BP 119/72
--- NOTE | 2022-07-07 12:02 | NUR ---
RN NOTE PER [facility], REDRAW APTT STAT BEFORE ANY CHANGES TO THE HEPARIN DRIP DUE TO LOW RESULTS AT 1040. APTT 53.9, NO CHANGE REQUIRE PER PROTOCOL. HEPARIN DRIP WILL CONTINUE AT 750 UNITS/HR.
--- NOTE | 2022-07-07 12:16 | NUR ---
RN NOTE SUGAR 133. PT STATES SHE DOES NOT USUALLY TAKE INSULIN FOR THIS NUMBER AND REFUSES TO RECEIVE IT FOR LUNCH.
[2022-07-07] MEDS: CEFTRIAXONE 2 G in IV D5W 100 ML IV SCH (14:36)
[2022-07-07 16:00] VITALS: BP 112/68
--- NOTE | 2022-07-07 17:31 | NUR ---
RN NOTE BLOOD SUGAR 134. PT ASKED NOT TO RECEIVE INSULIN AT THIS TIME FOR THIS LEVEL.
--- NOTE | 2022-07-07 19:27 | NUR ---
PT IN ROOM AWAKE, NO SIGNS OF RESPIRATORY DISTRESS, PATIENT STILL ON 6L OF 02 VIA NC ;TOLERATING WELL SATURATING @ >95% SP02. IV ACCESS ON MICHAEL ML INFUSING HEPARIN @75U/HR. HAS PUREWICK ON. SAFETY MEASURES IN PLACE. WILL CONTINUE PLAN OF CARE.
[2022-07-07 20:00] VITALS: BP 120/70
[2022-07-07] MEDS: INSULIN REGULAR, HUMAN 100 UNIT/ML 3 ML VIAL SQ PRN (21:14)
--- NOTE | 2022-07-07 23:07 | NUR ---
Vancomycin 0.75 gm in IV D5w 250ml held per level ordered due to vanco trough of 21. Charge nurse informed.
[2022-07-08] VITALS: BP 117/65
[2022-07-08] MEDS: HYDROCODONE/APAP 10/325MG TABLET PO PRN ×4 (03:31→23:19)
[2022-07-08 04:00] VITALS: BP 132/72
--- NOTE | 2022-07-08 06:32 | NUR ---
PT ASLEEP IN ROOM, NO SIGNS OF RESPIRATORY DISTRESS, PATIENT ON 5L OF 02 VIA NC ;TOLERATING WELL SATURATING @ >95% SP02. IV ACCESS ON MICHAEL ML INFUSING HEPARIN @75U/HR. HAS PUREWICK ON. DUE MEDS AND PRN MEDS GIVEN NEEDED AND ORDERED. NEEDS ATTENDED. SAFETY MEASURES MAINTAINED. WILL ENDORSE TO NEXT NURSE ON DUTY FOR CONTINUITY OF CARE
[2022-07-08 06:52] LABS: BASOPHILS % (AUTO) 0.1 % (0.0-2.0); EOSINOPHILS % (AUTO) 0.6 % (0.0-6.0); HEMATOCRIT 23 % (33-45); HEMOGLOBIN 7.5 g/dL (11.5-14.8); LYMPHOCYTES % (AUTO) 59.9 % (20.0-44.0); MEAN CORPUSCULAR HGB CONC 33 g/dl (31.0-36.0); MEAN CORPUSCULAR VOLUME 91 fL (82-100); MONOCYTES # (AUTO) 0.5 K/uL (0.1-1.30); MONOCYTES % (AUTO) 7.8 % (2.0-12.0); NEUTROPHILS # (AUTO) 2.1 K/uL (1.8-8.9); NEUTROPHILS % (AUTO) 31.6 % (43.0-81.0); PLATELET COUNT (AUTO) 463 K/uL (150-450); RED BLOOD CELL COUNT(AUTO) 2.51 MIL/uL (4.0-5.2); WHITE BLOOD COUNT (AUTO) 6.6 K/uL (4.3-11.0)
[2022-07-08 06:58] LABS: CALCIUM, SERUM 7.6 mg/dL (8.5-10.1); CREATININE 0.7 mg/dL (0.6-1.3); MAGNESIUM 1.8 mg/dL (1.8-2.4); PHOSPHORUS 2.3 mg/dL (2.5-4.9); POTASSIUM 3.8 mmol/L (3.5-5.1)
--- NOTE | 2022-07-08 07:10 | NUR ---
ELECTRICAL LINEWORKER NOTES RECEIVED PT AWAKE IN BED A0C4. NO COMPLAINTS OF PAIN OR DISCOMFORT AT THIS TIME. PT IS PO RECEIVES MEDICATIONS ORALLY AND TOLERATES IT WELL. IV ACCESS ON MICHAEL MIDLINE PATENT AND INTACT. CURRENTLY ON ISOLATION FOR PENDING TB RESULTS. HOB ELEVATED TO 30 TO 45 DEGREES. SIDERAILS UP AT ALL TIMES. BED AT ITS LOWEST SETTING. WILL CONTINUE TO MONITOR.
[2022-07-08 07:22] LABS: IRON, SERUM 23 ug/dl (50-175); TOTAL IRON BINDING CAPACITY 167 ug/dl (250-450)
[2022-07-08 07:56] LABS: C-REACTIVE PROTEIN < 0.2 mg/dL (0.0-0.9); FERRITIN 178 ng/mL (8-388); THYROID STIMULATING HORMONE 7.036 uIU/mL (0.358-3.74)
[2022-07-08] MEDS: BLOOD SUGAR DIAGNOSTIC 1 EACH STRIP IN SCH ×4 (07:57→21:38)
--- NOTE | 2022-07-08 07:59 | NUR ---
JINGLE WRITER NOTES: PT BS CHECKED ORDERED AND WAS 73. NO INSULIN GIVEN AT THIS TIME PER SLIDING SCALE. OFFERED ORANGE JUICE AND COFFEE BUT PT STATED SHE DID NOT WANT THEM AT THIS TIME.
[2022-07-08 08:28] VITALS: BP 114/69
[2022-07-08] MEDS: PANTOPRAZOLE 40 MG TABLET.DR PO SCH (08:48)
[2022-07-08] MEDS: risperiDONE 0.25 MG TABLET PO SCH ×3 (08:48→16:50)
[2022-07-08] MEDS: DIVALPROEX SODIUM 250 MG TABLET.DR PO SCH ×3 (08:48→16:50)
[2022-07-08] MEDS: MICAFUNGIN SODIUM 100 MG in IV NS 0.9% 100 ML IV SCH (08:52)
--- NOTE | 2022-07-08 09:00 | NUR ---
SUPERVISOR METER SHOP NOTES IV MEDICATIONS MYCAMINE 100MG AND SOLU-MEDROL 40MG GIVEN BY TAWANNA STEWART.
[2022-07-08] MEDS: methylPREDNISolone SOD SUCC 40 MG/ML VIAL IV SCH ×2 (09:02→16:51)
[2022-07-08 09:33] LABS: BAND % (MANUAL) 2 % (0.0-5.0); LYMPHOCYTES % (MANUAL) 56 % (16-48); MONOCYTES % (MANUAL) 7 % (0-11.0); MYELOCYTES % 1 % (0-0); NEUTROPHILS % (MANUAL) 34 (42-76)
--- NOTE | 2022-07-08 09:45 | NUR ---
RECEIVED PTT OF 70.9 WITH NO CHANGES ON THE HEPARIN DRIP PER PROTOCOL.
[2022-07-08] MEDS ORDERED: K PHOS NEUTRAL 250 MG TABLET PO ONE (10:00)
--- NOTE | 2022-07-08 10:45 | NUR ---
TUBULAR RIVETER NOTE PT BLOOD SUGAR RECHECKED AND WAS 100.
--- NOTE | 2022-07-08 11:31 | NUR ---
CONTINUATION OF NOTE ABOVE: LESA BURLESON NOTIFIED OF PATIENT COMPLAINING OF "STABBING" TYPE OF PAIN IN THE MIDDLE OF HER CHEST. NO SOB NOTED, AND NO NUMBNESS ON EXTREMITIES WITH GOOD HAND ARTS ADMINISTRATOR. PATIENT IS ON ST ON TELE MONITOR WITH HR OF 120. PATIENT WAS ADMINISTERED NORCO EARLIER WITH MINIMAL RELIEF. RECEIVED ORDERS FOR STAT EKG, TROPONIN AND TESSALON PERLES FOR COUGH AND ALL ORDERS NOTED AND CARRIED OUT. WILL CONTINUE TO MONITOR PATIENT.
--- NOTE | 2022-07-08 11:31 | NUR ---
LESA BURLESON NOTIFIED OF PATIENT COMPLAINING O
[2022-07-08 12:00] VITALS: BP 129/68
[2022-07-08] MEDS ORDERED: BENZONATATE 100 MG CAPSULE PO PRN ×2 (12:00)
--- NOTE | 2022-07-08 12:30 | NUR ---
PATIENT IN BED, AWAKE, ALERT, ORIENTED X 3. PATIENT DENIES SEVERE CHEST PAIN AT THIS TIME, NO NUMBNESS AND TINGLING SENSATION NOTED ON HER BILATERAL ARM. NO SOB NOTED, BREATHING EVEN AND UNLABORED. ON ST WITH HR OF 104 ON TELE MONITOR. WILL CONTINUE TO MONITOR PATIENT
--- NOTE | 2022-07-08 13:27 | NUR ---
LESA BURLESON ALSO INFORMED OF TROPIN RESULT OF 5, NO FURTHER ORDERS NOTED.
--- NOTE | 2022-07-08 13:27 | NUR ---
LESA BURLESON NOTIFIED OF STAT EKG RESULT WITH NO FURTHER ORDERS NOTED AT THIS TIME.
[2022-07-08] MEDS: CEFTRIAXONE 2 G in IV D5W 100 ML IV SCH (13:32)
--- NOTE | 2022-07-08 14:29 | NUR ---
PREVENTION COORDINATOR NOTES PT IS AWAKE IN BED. PAIN ON CHEST STILL PRESENT BUT PT STATED IT IS GETTING BETTER PAIN SCALE 5/10. NO EVIDENCE OF DISTRESS. WILL CONITINUE CURRENT PLAN OF CARE.
[2022-07-08] MEDS: HEPARIN INFUSION/D5W 500 ML IV PRN (15:25)
[2022-07-08 16:00] VITALS: BP 121/70
[2022-07-08] MEDS: VANCOMYCIN HCL 0.75 GM in IV D5W 250 ML IV SCH (17:00)
--- NOTE | 2022-07-08 18:30 | NUR ---
SWISS TYPE SCREW MACHINE OPERATOR CLOSING NOTES PT IS AWAKE IN BED STILL C/O PAIN 4/10 ON HER CHEST. NO SIGNS OF DISTRESS OR FACIAL GRIMACING NOTED. OFFERED TO REPOSITION BUT PT STATED SHE IS COMFORTABLE. ON NASAL CANNULA 5L WITH O2 SATURATION AT 99%. IV ACCESS ON LUANN MIDLINE PATENT AND INTACT. HOB ELEVATED AT PTS COMFORT. SIDERAILS UP AT ALL TIME. BED LOCKED AND AT ITS LOWEST SETTING. WILL ENDORSE TO ONCOMING NURSE.
--- NOTE | 2022-07-08 18:43 | NUR ---
VANCO THROUGH IS STILL NOT AVAILABLE, BLOOD WAS DRAWN @ 1640. PHARMACIST KINGA IS INFORMED AND WILL WAIT UNTIL THE RESULT IS AVAILABLE. MEDICATION WAS NOT GIVEN TO THE PATIENT. WILL ENDORSE TO INCOMING NURSE.
[2022-07-08 20:00] VITALS: BP 111/72
--- NOTE | 2022-07-08 20:37 | NUR ---
RN OPENING NOTE (THIS NURSE WAS FLOATED TO [place] UNIT LAST MINUTE) PATIENT AWAKE IN BED. A/OX4. NO S/S OF DISTRESS, BREATHING WITHOUT DIFFICULTY ON 4L NC. MICHAEL MIDLINE #18 INTACT AND PATENT WITH HEPARIN DRIP RUNNING AT 750 UNITS/HR. ACCORDING TO CHARGE NURSE, XAVIER, IF PTT IS NORMAL NEXT CHECK WILL BE WITHIN 24HRS - NEXT LEVEL TO BE RE-CHECKED AT 0600. TELE READ[address] 101 - BASELINE ACCORDING TO TRUCKMAN. SAFETY MEASURES IN PLACE: BED LOCKED AND AT LOWEST POSITION, RAILS UP X2, CALL MELVIN WITHIN REACH. WILL CONTINUE TO MONITOR PATIENT.
[2022-07-08] MEDS ORDERED: VANCOMYCIN HCL 0.75 GM in IV D5W 250 ML IV SCH (21:00)
--- NOTE | 2022-07-08 22:17 | NUR ---
RN NOTE RECENT PTT IS 51.2 - PER SLIDING SCALE, NO CHANGES AT THIS TIME. PATIENT STABLE, WILL CONTINUE TO MONITOR PATIENT.
[2022-07-09 00:56] VITALS: BP 109/78
[2022-07-09 04:00] VITALS: BP 133/80
[2022-07-09 06:07] LABS: BASOPHILS % (AUTO) 0.1 % (0.0-2.0); HEMATOCRIT 26 % (33-45); HEMOGLOBIN 8.3 g/dL (11.5-14.8); LYMPHOCYTES # (AUTO) 2.8 K/uL (0.8-4.8); LYMPHOCYTES % (AUTO) 43.5 % (20.0-44.0); MEAN CORPUSCULAR HGB CONC 32 g/dl (31.0-36.0); MEAN CORPUSCULAR VOLUME 91 fL (82-100); MONOCYTES # (AUTO) 0.5 K/uL (0.1-1.30); NEUTROPHILS # (AUTO) 3.2 K/uL (1.8-8.9); NEUTROPHILS % (AUTO) 49.4 % (43.0-81.0); PLATELET COUNT (AUTO) 509 K/uL (150-450); RED BLOOD CELL COUNT(AUTO) 2.86 MIL/uL (4.0-5.2); WHITE BLOOD COUNT (AUTO) 6.4 K/uL (4.3-11.0)
[2022-07-09] MEDS: HYDROCODONE/APAP 10/325MG TABLET PO PRN ×3 (06:23→20:41)
[2022-07-09 06:36] LABS: CALCIUM, SERUM 8.3 mg/dL (8.5-10.1); CREATININE 0.7 mg/dL (0.6-1.3); MAGNESIUM 1.9 mg/dL (1.8-2.4); PHOSPHORUS 3.1 mg/dL (2.5-4.9)
--- NOTE | 2022-07-09 06:49 | NUR ---
RN CLOSING NOTE PATIENT AWAKE IN BED. A/OX4. NO S/S OF DISTRESS, BREATHING WITHOUT DIFFICULTY ON 5L NC. MICHAEL MIDLINE #18 INTACT AND PATENT W/ HEPARIN 750UNITS/HR. TELE READS ST 102. SAFETY MEASURES IN PLACE: BED LOCKED IN PLACE AND AT LOWEST POSITION, RAILS UP X2, CALL MELVIN WITHIN REACH. WILL ENDORSE TO NEXT SHIFT FOR KELSEY.
[2022-07-09 07:07] LABS: IMMUNOGLOBULIN A, SERUM 310 mg/dL (87-352); IMMUNOGLOBULIN G, SERUM 1693 mg/dL (586-1602); IMMUNOGLOBULIN M, SERUM 54 mg/dL (26-217)
--- NOTE | 2022-07-09 07:30 | NUR ---
RN Receiving Report. Patient AOx4 able to express her concerns. All safety precaution taken, call light and table within reach, bed at lowest position. Patient with no signs of distress or discomfort, discussed plan on care, pt verbalized agreement. Will continue to provide care as needed and administered medications as prescribed.
[2022-07-09 08:00] VITALS: BP 115/71
[2022-07-09 08:06] LABS: CANCER AG, 125 13.7 U/mL (0.0-38.1); CANCER AG, 15-3 21.9 U/mL (0.0-25.0)
[2022-07-09] MEDS: VANCOMYCIN 1.25 GM in IV D5W 250 ML IV SCH ×2 (08:15→20:39)
[2022-07-09] MEDS: risperiDONE 0.25 MG TABLET PO SCH ×3 (08:16→16:52)
[2022-07-09] MEDS: methylPREDNISolone SOD SUCC 40 MG/ML VIAL IV SCH ×2 (08:16→16:52)
[2022-07-09] MEDS: DIVALPROEX SODIUM 250 MG TABLET.DR PO SCH ×3 (08:16→16:52)
[2022-07-09] MEDS: FLUCONAZOLE (100 MG) 100 MG TABLET PO SCH (08:16)
[2022-07-09] MEDS: PANTOPRAZOLE 40 MG TABLET.DR PO SCH (08:16)
[2022-07-09] MEDS: BLOOD SUGAR DIAGNOSTIC 1 EACH STRIP IN SCH ×4 (08:17→22:40)
[2022-07-09 12:00] VITALS: BP 123/69
[2022-07-09 12:06] LABS: *ANA ANTI-CENTROMERE B AB <0.2 AI (0.0-0.9); *ANA ANTI-DNA(DS) AB, QN 1 IU/mL (0-9); *ANA ANTI-JO-1 <0.2 AI (0.0-0.9); *ANA ANTICHROMATIN ANTIBODY <0.2 AI (0.0-0.9); *ANA RNP ANTIBODIES <0.2 AI (0.0-0.9); *ANA SJOGREN'S ANTI-SS-A <0.2 AI (0.0-0.9); *ANA SJOGREN'S ANTI-SS-B <0.2 AI (0.0-0.9); *ANAANTI-SCLERODERMA-70 AB <0.2 AI (0.0-0.9); *ANASMITH AB <0.2 AI (0.0-0.9); *SPE A/G RATIO 0.6 (0.7-1.7); *SPE ALPHA-1-GLOBULIN 0.2 g/dL (0.0-0.4); *SPE ALPHA-2-GLOBULIN 0.6 g/dL (0.4-1.0); *SPE BETA GLOBULIN 0.8 g/dL (0.7-1.3); *SPE M-SPIKE Not Observed g/dL (Not Observed)
[2022-07-09] MEDS: CEFTRIAXONE 2 G in IV D5W 100 ML IV SCH (13:56)
[2022-07-09 16:00] VITALS: BP 127/74
--- NOTE | 2022-07-09 18:29 | NUR ---
101 RN Closing Note Patient AOx4 able to express her own concerns. Patient remained stable thorough shift. All medications administered as ordered. Care provided as needed and requested. Heparin administered as ordered. IV with no signs of infiltration, no respiratory distress.
[2022-07-09 20:00] VITALS: BP 115/76
[2022-07-09] MEDS: HEPARIN INFUSION/D5W 500 ML IV PRN (20:42)
--- NOTE | 2022-07-09 20:45 | NUR ---
RN NOTE RECEIVED PT AWAKE ALERT AND ORIENTED, COMPLAINED OF EPIGASTRIC PAIN. PT REQUESTED NORCO, GIVEN ORDERED. O2 TITRATED TO 2L VIA NC. TOLERATING WELL, SATING AT 96%. DENIES ANY SOB. ON HEPARIN DRIP AT 750U/HR, INFUSING WELL. MICHAEL ML PATENT AND INTACT. ALL SAFETY MEASURES IN PLACE. WILL CONTINUE TO MONITOR.
[2022-07-09] MEDS: INSULIN REGULAR, HUMAN 100 UNIT/ML 3 ML VIAL SQ PRN (22:40)
[2022-07-10] VITALS: BP 130/71
[2022-07-10 04:00] VITALS: BP 116/77
[2022-07-10] MEDS: HYDROCODONE/APAP 10/325MG TABLET PO PRN ×3 (05:38→21:21)
--- NOTE | 2022-07-10 07:30 | NUR ---
ASSISTANT PROFESSOR OF BIOCHEMISTRY AM NOTE RECEIVED PATIENT IN BED; AWAKE, A/O X 4. ON O2 INHALATION @ 2 LPM VIA NASAL CANNULA. O2 SAT 96% BREATHING EVEN AND UNLABORED. NOT IN ANY FORM OF RESPIRATORY DISTRESS. DENIES ANY PAIN OR DISCOMFORT AT THIS TIME. ON ST HR 112 ON MONITOR. WITH RIGHT UPPER ARM MIDLINE 18G; HEPARIN DRIP AT 750UNITS/HOUR. TITRATED BASED ON APTT RESULT. SITE LEAR. SAFETY MEASURES IMPLEMENTED: ISOLATION PRECAUTION OBSERVED. CALL LIGHT AND TABLE WITHIN REACH, SIDE RAILS UP X 2, BED IN LOWEST LOCKED POSITION. WILL CONTINUE TO MONITOR.
--- NOTE | 2022-07-10 07:35 | NUR ---
RN NOTE PT TOLERATES O2 AT 2L. NOT IN ANY DISTRESS, DENIES SOB. CONTINUE ON HEPARIN DRIP AT 750U/HR. AWAITING FOR AM PTT RESULTS. ENDORSED TO AM SHIFT NURSE FOR KELSEY.
[2022-07-10] MEDS: BLOOD SUGAR DIAGNOSTIC 1 EACH STRIP IN SCH ×4 (07:47→21:35)
[2022-07-10 08:00] VITALS: BP 143/70
--- NOTE | 2022-07-10 08:00 | NUR ---
PT TOLERATES O2 AT 2L. NOT IN ANY DISTRESS, DENIES SOB. CONTINUE ON HEPARIN DRIP AT 750U/HR. AWAITING FOR AM PTT RESULTS.
[2022-07-10 08:07] LABS: BASOPHILS % (AUTO) 0.2 % (0.0-2.0); EOSINOPHILS % (AUTO) 0.5 % (0.0-6.0); HEMATOCRIT 30 % (33-45); HEMOGLOBIN 9.4 g/dL (11.5-14.8); LYMPHOCYTES # (AUTO) 1.6 K/uL (0.8-4.8); LYMPHOCYTES % (AUTO) 27.4 % (20.0-44.0); MEAN CORPUSCULAR HGB CONC 32 g/dl (31.0-36.0); MEAN CORPUSCULAR VOLUME 93 fL (82-100); MONOCYTES # (AUTO) 0.5 K/uL (0.1-1.30); MONOCYTES % (AUTO) 7.7 % (2.0-12.0); NEUTROPHILS # (AUTO) 3.8 K/uL (1.8-8.9); NEUTROPHILS % (AUTO) 64.2 % (43.0-81.0); PLATELET COUNT (AUTO) 394 K/uL (150-450); RED BLOOD CELL COUNT(AUTO) 3.16 MIL/uL (4.0-5.2)
[2022-07-10 08:25] LABS: CALCIUM, SERUM 8.6 mg/dL (8.5-10.1); CREATININE 0.8 mg/dL (0.6-1.3); PHOSPHORUS 3.3 mg/dL (2.5-4.9); POTASSIUM 4.3 mmol/L (3.5-5.1)
[2022-07-10] MEDS: VANCOMYCIN 1.25 GM in IV D5W 250 ML IV SCH (08:34)
[2022-07-10] MEDS: methylPREDNISolone SOD SUCC 40 MG/ML VIAL IV SCH ×2 (08:34→16:28)
[2022-07-10] MEDS: PANTOPRAZOLE 40 MG TABLET.DR PO SCH (08:35)
[2022-07-10] MEDS: FLUCONAZOLE (100 MG) 100 MG TABLET PO SCH (08:35)
[2022-07-10] MEDS: risperiDONE 0.25 MG TABLET PO SCH ×3 (08:35→16:28)
[2022-07-10] MEDS: DIVALPROEX SODIUM 250 MG TABLET.DR PO SCH ×3 (08:35→16:27)
--- NOTE | 2022-07-10 09:30 | NUR ---
RN NOTES DUE MEDS GIVEN
[2022-07-10 12:00] VITALS: BP 117/67
--- NOTE | 2022-07-10 13:15 | NUR ---
PATIENT COMPLAINT OF CHEST PAIN 8/10, ACHING PAIN, PATIENT ASKED FOR NORCO, CHECKED AFTER 30 MINUTES.
--- NOTE | 2022-07-10 13:34 | NUR ---
RN NOTES DC HEPARIN DRIP
[2022-07-10] MEDS ORDERED: HEPARIN SODIUM, PORCINE 5000 UNITS/1 ML VIAL IV ONE (14:00)
[2022-07-10] MEDS: CEFTRIAXONE 2 G in IV D5W 100 ML IV SCH (14:03)
[2022-07-10] MEDS: ENOXAPARIN SODIUM 60 MG/0.6 ML DISP.SYRIN SQ SCH ×2 (14:04→21:25)
[2022-07-10 16:00] VITALS: BP 114/76
[2022-07-10] MEDS: INSULIN REGULAR, HUMAN 100 UNIT/ML 3 ML VIAL SQ PRN ×2 (17:33→21:36)
--- NOTE | 2022-07-10 18:51 | NUR ---
PATIENT IS AWAKE,ALERT,ORIENTED X4, VITAL SIGNS ARE STABLE.
[2022-07-10 20:00] VITALS: BP 111/68
--- NOTE | 2022-07-10 21:30 | NUR ---
RN NOTE PT REPORTS OF AN 8/10 CHEST PAIN THAT'S DESCRIBED ACHING. PT ADMINISTERED NORCO 1 TAB 10/325 MG. WILL MONITOR FOR EFFECTIVENESS.
--- NOTE | 2022-07-10 21:38 | NUR ---
RN NOTE 2200 BG NOTED TO BE 138 MG/DL. PT REFUSED INSULIN AND SAYS IT "MAKES IT DROP TOO LOW".
--- NOTE | 2022-07-10 22:10 | NUR ---
RN NOTE PT RECEIVED IN BED, AWAKE, A&O X3, CALM, COOPERATIVE; DENIES SUICIDAL IDEATION AT THIS TIME. PT ON 2L NC WITH CURRENT O2SAT OF 94%; NOTED TO HAVE COUGH; NO OTHER S/S OF RESP DISTRESS, NO SOB, NON-LABORED AND EQUAL BREATHING. PT ATTACHED TO EXTERNAL MONITOR, SR WITH HR OF 95. PUREWICK IN PLACE, DRAINING CLEAR AND YELLOW URINE. MICHAEL MIDLINE INTACT AND PATENT, FLUSHES EASILY WITH NO RESISTANCE; NS TKO AT 10 ML/HR. BED IN LOWEST POSITION, CALL LIGHT WITHIN REACH, SIDE RAILS UP X3. WILL CONTINUE TO MONITOR THROUGHOUT THE NIGHT.
[2022-07-11] VITALS (7 sets, daily range): BP systolic 114–127; BP diastolic 63–76
--- NOTE | 2022-07-11 06:05 | NUR ---
GUM PULLER CLOSING NOTE PT REMAINS SAFE IN BED, ASLEEP BUT EASILY AROUSABLE, A&O X3, SLEPT WELL THROUGHOUT THE NIGHT. CONTINUES TO BE ON 2L NC WITH O2SAT RANGING FROM 93%-94%; CONTINUES TO HAVE NON-PRODUCTIVE COUGH; NO OTHER S/S OF RESP DISTRESS, NO SOB, NON-LABORED AND EQUAL BREATHING. ATTACHED TO EXTERNAL MONITOR, SR WITH HR RANGING FROM 80-95. PUREWICK DRAINING CLEAR AND YELLOW URINE. MICHAEL MIDLINE INTACT AND PATENT, FLUSHES EASILY WITH NO RESISTANCE; NO MEDS/FLUIDS INFUSING THROUGH. ALL DUE MEDS ADMINISTERED DURING THE NIGHT. BED IN LOWEST POSITION, CALL LIGHT WITHIN REACH, SIDE RAILS UP X3. WILL ENDORSE TO DAYSHIFT NURSE.
[2022-07-11] MEDS: HYDROCODONE/APAP 10/325MG TABLET PO PRN ×3 (06:15→21:50)
--- NOTE | 2022-07-11 06:15 | NUR ---
RN NOTE PT COMPLAINS OF 8/10 CHEST PAIN. PT ADMINISTERED NORCO 10/325 MG. WILL MONITOR FOR EFFECTIVENESS.
[2022-07-11 07:08] LABS: CALCIUM, SERUM 8.2 mg/dL (8.5-10.1); CREATININE 0.9 mg/dL (0.6-1.3); POTASSIUM 4.3 mmol/L (3.5-5.1)
[2022-07-11] MEDS: BLOOD SUGAR DIAGNOSTIC 1 EACH STRIP IN SCH ×4 (07:16→21:49)
[2022-07-11] MEDS: INSULIN REGULAR, HUMAN 100 UNIT/ML 3 ML VIAL SQ PRN ×3 (07:32→21:49)
[2022-07-11] MEDS: methylPREDNISolone SOD SUCC 40 MG/ML VIAL IV SCH ×2 (08:57→16:51)
[2022-07-11] MEDS: DIVALPROEX SODIUM 250 MG TABLET.DR PO SCH ×3 (08:57→16:52)
[2022-07-11] MEDS: FLUCONAZOLE (100 MG) 100 MG TABLET PO SCH (08:57)
[2022-07-11] MEDS: PANTOPRAZOLE 40 MG TABLET.DR PO SCH (08:57)
[2022-07-11] MEDS: risperiDONE 0.25 MG TABLET PO SCH ×3 (08:57→16:52)
[2022-07-11 09:11] LABS: BASOPHILS % (AUTO) 0.3 % (0.0-2.0); HEMATOCRIT 28 % (33-45); HEMOGLOBIN 8.8 g/dL (11.5-14.8); LYMPHOCYTES % (AUTO) 21.9 % (20.0-44.0); MEAN CORPUSCULAR HGB CONC 32 g/dl (31.0-36.0); MEAN CORPUSCULAR VOLUME 92 fL (82-100); MONOCYTES % (AUTO) 6.4 % (2.0-12.0); NEUTROPHILS % (AUTO) 71.4 % (43.0-81.0); PLATELET COUNT (AUTO) 462 K/uL (150-450); RED BLOOD CELL COUNT(AUTO) 3.03 MIL/uL (4.0-5.2); WHITE BLOOD COUNT (AUTO) 6.4 K/uL (4.3-11.0)
[2022-07-11 09:12] LABS: LYMPHOCYTES # (AUTO) 1.4 K/uL (0.8-4.8); MONOCYTES # (AUTO) 0.4 K/uL (0.1-1.30); NEUTROPHILS # (AUTO) 4.6 K/uL (1.8-8.9)
[2022-07-11] MEDS: ENOXAPARIN SODIUM 60 MG/0.6 ML DISP.SYRIN SQ SCH ×2 (09:26→21:31)
--- NOTE | 2022-07-11 09:41 | NUR ---
RN OPENING NOTE PATIENT IN SUPINE POSITION, NO HINDS, IV SITE RIGHT AC NO INFLAMMATION, FLUSHES WELL. O2 VIA NC AT 3L 97%. SAFETY MEASURES IMPLEMENTED, BED IN LOWEST POSITION.
[2022-07-11] MEDS: CEFTRIAXONE 2 G in IV D5W 100 ML IV SCH (14:02)
[2022-07-11 17:48] LABS: LYMPHOCYTES % (MANUAL) 20 % (16-48); MONOCYTES % (MANUAL) 10 % (0-11.0); NEUTROPHILS % (MANUAL) 70 (42-76)
--- NOTE | 2022-07-11 18:56 | NUR ---
INTERFACE DESIGNER CLOSING NOTE PT REMAINS SAFE IN BED, ASLEEP BUT EASILY AROUSABLE, A&O X3, CONTINUES TO BE ON 2L NC WITH O2SAT RANGING FROM 93%-94%; CONTINUES TO HAVE NON-PRODUCTIVE COUGH; NO OTHER S/S OF RESP DISTRESS, NO SOB, NON-LABORED AND EQUAL BREATHING. ATTACHED TO EXTERNAL MONITOR, SR WITH HR RANGING FROM 80-95.MICHAEL MIDLINE INTACT AND PATENT, FLUSHES EASILY WITH NO RESISTANCE; NO MEDS/FLUIDS INFUSING THROUGH. BED IN LOWEST POSITION, CALL LIGHT WITHIN REACH, SIDE RAILS UP X3. WILL ENDORSE TO NIGHTSHIFT NURSE
--- NOTE | 2022-07-11 20:00 | NUR ---
LABORER SHIPYARD OPENING NOTE PATIENT SLEEPING IN BED, EASILY AWAKENED, ALERT/ORIENTED X 3, PT ABLE TO MAKE NEEDS KNOWN. PT STABLE ON 2 LPM OF O2 VIA NASAL CANNULA, NO S/S OF DISTRESS OR SOB NOTED, BREATHING EVEN AND UNLABORED, SPO2: 96%. PATIENT ON EXTERNAL SOLAR SALES AMBASSADOR READING SINUS RHYTHM, HR: 86. SAFETY MEASURES IN PLACE: CALL LIGHT WITHIN REACH, SIDE RAILS UP X 2, BED LOCKED IN LOWEST POSITION, HOB ELEVATED, BED ALARM ON. WILL CONTINUE TO MONITOR PATIENT
[2022-07-12] VITALS: BP 133/77
[2022-07-12] MEDS: HYDROCODONE/APAP 10/325MG TABLET PO PRN ×3 (03:53→17:53)
[2022-07-12 04:00] VITALS: BP 119/68
--- NOTE | 2022-07-12 04:05 | NUR ---
DOCUMENT PREPARER MICROFILMING NOTE PATIENT SPO2: 90% ON 2 LPM OF 02, TITRATED PATIENT TO 4 LPM OF 02 VIA NASAL CANNULA, SPO2: 95% NOW. WILL CONTINUE TO MONITOR
--- NOTE | 2022-07-12 06:21 | NUR ---
TRY OUT PERSON CLOSING NOTE PATIENT SLEEPING IN BED, EASILY AWAKENED, ALERT/ORIENTED X 3, PT ABLE TO MAKE NEEDS KNOWN. PT STABLE ON 4 LPM OF O2 VIA NASAL CANNULA, NO S/S OF DISTRESS OR SOB NOTED, BREATHING EVEN AND UNLABORED, SPO2: 94%. PATIENT ON EXTERNAL ASSET PROTECTION LEAD READING SINUS RHYTHM, AT THIS TIME, HR: 89; PATIENT HAD EPISODES OF SINUS TACHY, HIGHEST HEART RATE WAS 125 BPM . PT SLEPT WELL THROUGH THE NIGHT, MEDICATIONS GIVEN ORDERED, PT NEEDS MET THROUGHOUT SHIFT. SAFETY MEASURES IN PLACE: CALL LIGHT WITHIN REACH, SIDE RAILS UP X 3, BED LOCKED IN LOWEST POSITION, HOB ELEVATED, BED ALARM ON. WILL ENDORSE TO DAYSHIFT RN FOR CONTINUITY OF CARE
[2022-07-12 08:00] VITALS: BP 120/66
[2022-07-12] MEDS: BLOOD SUGAR DIAGNOSTIC 1 EACH STRIP IN SCH ×4 (08:40→22:21)
[2022-07-12] MEDS: INSULIN REGULAR, HUMAN 100 UNIT/ML 3 ML VIAL SQ PRN ×4 (08:51→22:22)
[2022-07-12] MEDS: DIVALPROEX SODIUM 250 MG TABLET.DR PO SCH ×3 (10:02→17:40)
[2022-07-12] MEDS: ENOXAPARIN SODIUM 60 MG/0.6 ML DISP.SYRIN SQ SCH (10:02)
[2022-07-12] MEDS: risperiDONE 0.25 MG TABLET PO SCH ×3 (10:02→17:40)
[2022-07-12] MEDS: methylPREDNISolone SOD SUCC 40 MG/ML VIAL IV SCH ×2 (10:03→17:40)
[2022-07-12] MEDS: FLUCONAZOLE (100 MG) 100 MG TABLET PO SCH (10:03)
[2022-07-12] MEDS: PANTOPRAZOLE 40 MG TABLET.DR PO SCH (10:03)
[2022-07-12 12:00] VITALS: BP 132/69
[2022-07-12 16:00] VITALS: BP 108/71
[2022-07-12] MEDS: APIXABAN 5 MG TABLET PO SCH (17:39)
--- NOTE | 2022-07-12 19:20 | NUR ---
RN NOTES RECEIVED REPORT FROM MORNING RN. PATIENT IN BED A/O X3 ON OXYGEN IHALATION VIA NC @ 2LPM SATING 94% NO SOB NO DISTRESS NOTED AT THIS TIME. WITH IV ACCESS AT [facility]HAEL MIDLINE PATENT FLUSHES WELL. ALL SAFETY MEASURES IN PLACE AT ALL TIMES. HOB ELEVATED. CALL LIGHT WITHIN REACH. WILL CLOSELY MONITOR THE PATIENT
--- NOTE | 2022-07-12 19:46 | NUR ---
TRAINING AND DEVELOPMENT HEAD CLOSING NOTE PATIENT SLEEPING IN BED, EASILY AWAKENED, ALERT/ORIENTED X 3, PT ABLE TO MAKE NEEDS KNOWN. PT STABLE ON 2 LPM OF O2 VIA NASAL CANNULA, NO S/S OF DISTRESS OR SOB NOTED, BREATHING EVEN AND UNLABORED, SPO2: 92%. PATIENT ON EXTERNAL VALUE STREAM COACH READING ST, AT THIS TIME, HR: 102;PT NEEDS MET THROUGHOUT SHIFT. SAFETY MEASURES IN PLACE: CALL LIGHT WITHIN REACH, SIDE RAILS UP X 3, BED LOCKED IN LOWEST POSITION, HOB ELEVATED, BED ALARM ON. WILL ENDORSE TO NIGHT RN FOR CONTINUITY OF CARE
[2022-07-12 20:00] VITALS: BP 122/63
[2022-07-13] VITALS: BP 124/80
[2022-07-13 04:00] VITALS: BP 132/63
[2022-07-13] MEDS: HYDROCODONE/APAP 10/325MG TABLET PO PRN ×3 (04:29→20:36)
--- NOTE | 2022-07-13 06:19 | NUR ---
RN NOTES PATIENT REMAINS STABLE NO SIGNIFICANT CHANGES. ALL DUE MEDS GIVEN ORDERED. ALL SAFETY MEASURES IN PLACE. ALL NEEDS ATTENDED. WILL ENDORSED TO [id number] SHIFT FOR KELSEY
[2022-07-13 06:46] LABS: BASOPHILS % (AUTO) 0.1 % (0.0-2.0); HEMATOCRIT 27 % (33-45); HEMOGLOBIN 8.7 g/dL (11.5-14.8); LYMPHOCYTES # (AUTO) 0.9 K/uL (0.8-4.8); LYMPHOCYTES % (AUTO) 17.5 % (20.0-44.0); MEAN CORPUSCULAR HGB CONC 32 g/dl (31.0-36.0); MEAN CORPUSCULAR VOLUME 91 fL (82-100); MONOCYTES # (AUTO) 0.4 K/uL (0.1-1.30); MONOCYTES % (AUTO) 7.5 % (2.0-12.0); NEUTROPHILS # (AUTO) 3.9 K/uL (1.8-8.9); NEUTROPHILS % (AUTO) 74.9 % (43.0-81.0); PLATELET COUNT (AUTO) 397 K/uL (150-450); RED BLOOD CELL COUNT(AUTO) 2.99 MIL/uL (4.0-5.2); WHITE BLOOD COUNT (AUTO) 5.2 K/uL (4.3-11.0)
[2022-07-13 07:00] LABS: CALCIUM, SERUM 8.3 mg/dL (8.5-10.1); CREATININE 0.9 mg/dL (0.6-1.3); POTASSIUM 4.6 mmol/L (3.5-5.1)
--- NOTE | 2022-07-13 07:20 | NUR ---
rn opening note received pt in bed. pt is alert and oriented x3. pt able to make needs known. pt is on 2 l nc tolerating well at above 94%. no signs of pain or discomfort noted at this time. pt on tele monitor sinus rhytm 78. pt has right upper arm midline. iv intact, patent and flushing well. all safety measures in place. call light within reach.bed locked at lowest position. side rails up x2. bed alarm on.
[2022-07-13] MEDS: BLOOD SUGAR DIAGNOSTIC 1 EACH STRIP IN SCH ×4 (07:31→22:00)
[2022-07-13 08:00] VITALS: BP 137/69
[2022-07-13] MEDS: PANTOPRAZOLE 40 MG TABLET.DR PO SCH (08:31)
[2022-07-13] MEDS: risperiDONE 0.25 MG TABLET PO SCH ×3 (08:31→16:15)
[2022-07-13] MEDS: FLUCONAZOLE (100 MG) 100 MG TABLET PO SCH (08:31)
[2022-07-13] MEDS: DIVALPROEX SODIUM 250 MG TABLET.DR PO SCH ×3 (08:31→16:15)
[2022-07-13] MEDS: methylPREDNISolone SOD SUCC 40 MG/ML VIAL IV SCH ×2 (08:31→16:15)
[2022-07-13] MEDS: APIXABAN 5 MG TABLET PO SCH ×2 (08:32→16:15)
[2022-07-13 12:00] VITALS: BP 119/80
[2022-07-13] MEDS: INSULIN REGULAR, HUMAN 100 UNIT/ML 3 ML VIAL SQ PRN ×2 (12:17→23:26)
[2022-07-13 16:00] VITALS: BP 124/72
--- NOTE | 2022-07-13 19:32 | NUR ---
WATER INSPECTOR CLOSING NOTE PT ALERT/ORIENTED X 3, PT ABLE TO MAKE NEEDS KNOWN. VERBALLY RESPONSIVE.PT 2 LPM OF O2 VIA NASAL CANNULA, TOLERATING AT ABOVE 92&. NO SIGNS OF PAIN OR DISCOMFORT NOTED AT THIS TIME. PT ON EXTERNAL VP GLOBAL READING SR,HR: 97 AT THIS TIME. ALL SAFETY MEASURES IN PLACE: CALL LIGHT WITHIN REACH, SIDE RAILS UP X 2, BED LOCKED IN LOWEST POSITION, HOB ELEVATED, BED ALARM ON. ENDORSEDTO NIGHT RN FOR CONTINUITY OF CARE
--- NOTE | 2022-07-13 19:35 | NUR ---
LVN LPN OPENING NOTES: RECEIVED PATIENT AWAKE IN BED, BED IN LOW POSITION, CALL LIGHTS WITHIN REACH, NO COMPLAIN OF PAIN AND DIS COMFORT AT THIS TIME, ON O2 INHALATION AT 2LPM SATURATING WELL, PATIENT IS A/OX3 ABLE TO MAKE NEEDS KNOWN, ON TELE MONITOR-SR94, IV LINE ART MICHAEL ML-SL, PATIENT KEPT CLEAN AND DRY ALL NEEDS MET WILL CONTINUE TO MONITOR.
[2022-07-13 20:00] VITALS: BP 107/58
[2022-07-13 20:24] LABS: LYMPHOCYTES % (MANUAL) 23 % (16-48); MONOCYTES % (MANUAL) 8 % (0-11.0); NEUTROPHILS % (MANUAL) 69 (42-76)
--- NOTE | 2022-07-13 23:32 | NUR ---
RN NOTES: BLOOD SUGAR-132/ 2 UNITS INSULIN GIVEN PER SLIDING SCALE
[2022-07-14 00:48] VITALS: BP 112/64
[2022-07-14] MEDS: HYDROCODONE/APAP 10/325MG TABLET PO PRN ×4 (02:58→23:58)
[2022-07-14 04:00] VITALS: BP 133/46
--- NOTE | 2022-07-14 06:52 | NUR ---
DIRECTOR OF ORTHOPEDICS CLOSING NOTES: PATIENT SLEEP IN BED COMFORTABLY, AROUSABLE TO VERBAL STIMULI, BED IN LOW POSITION CALL LIGHTS WITHIN REACH, NO COMPLAIN OF PAIN AND DISCOMFORT AT THIS TIME, ON PAIN MANAGEMENT, ON TELE MONITOR-SR92, PATIENT KEPT CLEAN AND DRY ALL NEEDS MET ENDORSE TO INCOMING SHIFT.
--- NOTE | 2022-07-14 07:25 | NUR ---
BIKE DESIGNER OPENING NOTES: RECEIVED PATIENT SLEEPING IN COMFORTABLY, WITH HOB ELEVATED, EASILY AWAKEN BY VERBAL STIMULI. ON 3 LPM VIA NC OF OXYGEN, NO SOB, NOT IN ANY FORM OF ANY DISTRESS NOTED. TELEMONITORING SHOWS SINUS TACHY AT 101 BPM. WITH IV ACCESS ON THE MICHAEL MID LINE, SL, FLUSHING WELL. DRESSING INTACT. SAFETY MEASURES IN PLACE: BED IN LOWEST AND LOCKED POSITION. SIDE RAILS X3, CALL LIGHT AND TRAY TABLE WITHIN REACH. DENIES PAIN NOR DISCOMFORT AT THIS TIME. LAST PAIN MEDICATION WAS GIVEN 0258.
--- NOTE | 2022-07-14 07:35 | NUR ---
RN NOTES - JORDAN KEN TRANSFER DATA, CHARGE NURSE AWARE 0730 BLOOD GLUCOSE RESULT - 121 NO INSULIN COVERAGE GIVEN
[2022-07-14] MEDS: BLOOD SUGAR DIAGNOSTIC 1 EACH STRIP IN SCH ×4 (07:48→21:57)
[2022-07-14] MEDS: INSULIN REGULAR, HUMAN 100 UNIT/ML 3 ML VIAL SQ PRN ×4 (07:51→21:59)
[2022-07-14 08:00] VITALS: BP 133/73
[2022-07-14] MEDS: APIXABAN 5 MG TABLET PO SCH ×2 (08:28→16:52)
[2022-07-14] MEDS: risperiDONE 0.25 MG TABLET PO SCH ×3 (08:28→16:50)
[2022-07-14] MEDS: PANTOPRAZOLE 40 MG TABLET.DR PO SCH (08:29)
[2022-07-14] MEDS: methylPREDNISolone SOD SUCC 40 MG/ML VIAL IV SCH ×2 (08:29→16:48)
[2022-07-14] MEDS: FLUCONAZOLE (100 MG) 100 MG TABLET PO SCH (08:29)
[2022-07-14] MEDS: DIVALPROEX SODIUM 250 MG TABLET.DR PO SCH ×3 (08:29→16:50)
--- NOTE | 2022-07-14 09:09 | NUR ---
TAWANNA NOTES - PATIENT COMPLAINING OF 02/27 PAIN IN THE TORSO AREA, GAVE NORCO 5/325 MG ORDERED, WILL CONTINUE TO MONITOR. Addendum: 07/14/22 at 1608 by JOSIE AMOR RN *NORCO 10
[2022-07-14 12:00] VITALS: BP 125/80
--- NOTE | 2022-07-14 12:05 | NUR ---
TAWANNA NOTES - JORDAN KEN TRANSFER DATA, CHARGE NURSE AWARE 1200 PM BLOOD GLUCOSE RESULT - 121 NO INSULIN COVERAGE GIVEN Addendum: 07/14/22 at 1408 by JOSIE AMOR RN CORRECTION: 1200 PM BLOOD GLUCOSE RESULT - 141 2 UNITS OF REGULAR INSULIN GIVEN PER ORDER
[2022-07-14 16:00] VITALS: BP 118/83
--- NOTE | 2022-07-14 16:08 | NUR ---
RN NOTES - PATIENT COMPLAINING OF 8/10 PAIN IN THE TORSO AREA, GAVE NORCO 10/325 MG ORDERED, WILL CONTINUE TO MONITOR.
--- NOTE | 2022-07-14 18:59 | NUR ---
TUBING SUPERVISOR CLOSING NOTES: PATIENT SLEEPING AWAKE WITH HOB ELEVATED, ON 2.5 LPM VIA NC OF OXYGEN, NO SOB, NOT IN ANY FORM OF ANY DISTRESS NOTED. TELEMONITORING SHOWS SINUS TACHY AT 103 BPM. WITH IV ACCESS ON THE MICHAEL MID LINE G#18 SL, FLUSHING WELL. DRESSING INTACT. SAFETY MEASURES MAINTAINED: BED IN LOWEST AND LOCKED POSITION. SIDE RAILS X3, CALL LIGHT AND TRAY TABLE WITHIN REACH. DENIES PAIN NOR DISCOMFORT AT THIS TIME. LAST PAIN MEDICATION WAS GIVEN 1606. ALL DUE MEDS GIVEN, ALL NEEDS MET. WILL ENDORSE TO WORKERS' COMPENSATION COMMISSIONER NURSE.
--- NOTE | 2022-07-14 19:20 | NUR ---
LIBRARY CLERK OPENING NOTES: RECEIVED PATIENT AWAKE ON BED, VERBALLY RESPONSIVE, A/O X3, WITH HOB ELEVATED, ON 3 LPM VIA NC OF OXYGEN, DENIES PAIN NOR DISCOMFORT AT THIS TIME. NO SOB, NOT IN ANY FORM OF ANY DISTRESS NOTED. TELEMONITORING SHOWS SINUS TACHY AT 101 BPM. WITH IV ACCESS ON THE MICHAEL MID LINE SL, FLUSHING WELL. DRESSING INTACT. SAFETY MEASURES IN PLACE: BED IN LOWEST AND LOCKED POSITION. SIDE RAILS X3, CALL LIGHT AND TRAY TABLE WITHIN REACH. WILL CONTINUE TO MONITOR THROUGHOUT THE SHIFT.
[2022-07-14 20:00] VITALS: BP 116/70
[2022-07-15] VITALS: BP 123/68
[2022-07-15 04:00] VITALS: BP 121/62
[2022-07-15] MEDS: HYDROCODONE/APAP 10/325MG TABLET PO PRN ×4 (06:11→23:23)
--- NOTE | 2022-07-15 06:11 | NUR ---
RN NOTES PATIENT COMPLAINING OF 8/10 PAIN IN THE MEDIAL CHEST AREA, GAVE NORCO 10/325 MG ORDERED, WILL CONTINUE TO MONITOR.
[2022-07-15 06:23] LABS: HEMATOCRIT 28 % (33-45); LYMPHOCYTES # (AUTO) 0.8 K/uL (0.8-4.8); LYMPHOCYTES % (AUTO) 11.9 % (20.0-44.0); MEAN CORPUSCULAR HGB CONC 32 g/dl (31.0-36.0); MEAN CORPUSCULAR VOLUME 90 fL (82-100); MONOCYTES # (AUTO) 0.5 K/uL (0.1-1.30); MONOCYTES % (AUTO) 7.4 % (2.0-12.0); NEUTROPHILS # (AUTO) 5.8 K/uL (1.8-8.9); NEUTROPHILS % (AUTO) 80.7 % (43.0-81.0); PLATELET COUNT (AUTO) 365 K/uL (150-450); RED BLOOD CELL COUNT(AUTO) 3.08 MIL/uL (4.0-5.2); WHITE BLOOD COUNT (AUTO) 7.1 K/uL (4.3-11.0)
--- NOTE | 2022-07-15 06:38 | NUR ---
TRADE MARK ATTORNEY OPENING NOTES: PATIENT IN BED RESTING, VERBALLY RESPONSIVE, A/O X3, WITH HOB ELEVATED, ON 3 LPM VIA NC OF OXYGEN, NO SOB, NOT IN ANY FORM OF ANY DISTRESS NOTED. TELEMONITORING SHOWS SINUS RHYTHM/ SINUS TACH. WITH IV ACCESS ON THE MICHAEL MID LINE SL, FLUSHING WELL. ALL DUE MEDS GIVEN. KEPT DRY AND CLEAN, SAFETY MEASURES IN PLACE: BED IN LOWEST AND LOCKED POSITION. SIDE RAILS X3, CALL LIGHT AND TRAY TABLE WITHIN REACH. WILL ENDORSE TO AM SHIFT NURSE FOR CONTINUITY OF CARE. Addendum: 07/15/22 at 0642 by BRIEN MUNSON RN TRADE MARK ATTORNEY CLOSING NOTES: PATIENT IN BED RESTING, VERBALLY RESPONSIVE, A/O X3, WITH HOB ELEVATED, ON 3 LPM VIA NC OF OXYGEN, NO SOB, NOT IN ANY FORM OF ANY DISTRESS NOTED. TELEMONITORING SHOWS SINUS RHYTHM/ SINUS TACH. WITH IV ACCESS ON THE MICHAEL MID LINE SL, FLUSHING WELL. ALL DUE MEDS GIVEN. KEPT DRY AND CLEAN, SAFETY MEASURES IN PLACE: BED IN LOWEST AND LOCKED POSITION. SIDE RAILS X3, CALL LIGHT AND TRAY TABLE WITHIN REACH. WILL ENDORSE TO AM SHIFT NURSE FOR CONTINUITY OF CARE.
[2022-07-15 06:46] LABS: CALCIUM, SERUM 8.3 mg/dL (8.5-10.1); CREATININE 0.8 mg/dL (0.6-1.3); POTASSIUM 4.6 mmol/L (3.5-5.1)
--- NOTE | 2022-07-15 07:00 | NUR ---
MATERIAL EXPEDITOR OPENING NOTES: RECEIVED PATIENT IN BED ASLEEP, EASILY AROUSED WITH STIMULI. ALERT AND ORIENTED X 3 AND ABLE TO VERBALIZED NEEDS. NO SOB OR CARDIAC DISTRESS NOTED,ON O2 INHALATION @ 3LPM VIA NC. ON MILK TRUCK DRIVER WITH CURRENT READING OF SINUS RHYTHM @73 BPM. IV ACCESS ON MICHAEL MIDLINE PATENT, INTACT AND SL. SAFETY MEASURES MAINTAINED: BED LOCKED AND IN LOWEST POSITION, SIDE RAILS UP X 2,CALL LIGHT IN EASY REACH AND WILL MONITOR PT ACCORDINGLY.
[2022-07-15] MEDS: BLOOD SUGAR DIAGNOSTIC 1 EACH STRIP IN SCH ×4 (07:28→23:16)
[2022-07-15 08:00] VITALS: BP 133/73
[2022-07-15 08:15] LABS: LYMPHOCYTES % (MANUAL) 14 % (16-48); MONOCYTES % (MANUAL) 10 % (0-11.0); NEUTROPHILS % (MANUAL) 76 (42-76)
[2022-07-15] MEDS: risperiDONE 0.25 MG TABLET PO SCH ×3 (08:23→17:10)
[2022-07-15] MEDS: methylPREDNISolone SOD SUCC 40 MG/ML VIAL IV SCH ×2 (08:23→17:10)
[2022-07-15] MEDS: DIVALPROEX SODIUM 250 MG TABLET.DR PO SCH ×3 (08:23→17:10)
[2022-07-15] MEDS: FLUCONAZOLE (100 MG) 100 MG TABLET PO SCH (08:23)
[2022-07-15] MEDS: PANTOPRAZOLE 40 MG TABLET.DR PO SCH (08:23)
[2022-07-15] MEDS: APIXABAN 5 MG TABLET PO SCH ×2 (08:25→17:12)
[2022-07-15] MEDS: INSULIN REGULAR, HUMAN 100 UNIT/ML 3 ML VIAL SQ PRN ×2 (11:37→17:13)
[2022-07-15 12:00] VITALS: BP 105/72
[2022-07-15 16:00] VITALS: BP 122/71
--- NOTE | 2022-07-15 18:46 | NUR ---
NAT INSTRUCTOR CLOSING NOTES: PATIENT IN BED WATCHING TELEVISION ALERT AND ORIENTED X 3 AND ABLE TO VERBALIZED NEEDS. NO SOB OR CARDIAC DISTRESS NOTED,ON O2 INHALATION @ 3LPM VIA NC. ON PEDIATRICIAN MANAGING PARTNER WITH CURRENT READING OF SINUS RHYTHM @81 BPM. IV ACCESS ON MICHAEL MIDLINE PATENT, INTACT AND SL. ON PAIN MANGEMENT ORDERED.ON ACHS BLOOD SUGAR MONITORING, INSULIN ADMINISTRATION PER SL, NO S/SX OF HYPOGLYCEMIA OR HYPERGLYCEMIA NOTED. SAFETY MEASURES MAINTAINED: BED LOCKED AND IN LOWEST POSITION, SIDE RAILS UP X 2,CALL LIGHT IN EASY REACH AND WILL ENDORSE TO DIRECTOR OF PARTNERSHIPS RN FOR CONTINUITY OF CARE.
[2022-07-15 20:00] VITALS: BP 117/74
[2022-07-16] VITALS (16 sets, daily range): BP systolic 104–141; BP diastolic 47–89
[2022-07-16] MEDS: HYDROCODONE/APAP 10/325MG TABLET PO PRN ×3 (06:21→21:41)
--- NOTE | 2022-07-16 07:00 | NUR ---
RN CLOSING NOTE: ALERT AND ORIENTED TIMES 3. O2 3 LITERS NC SATING AT 92 %. SINUS RHYTHM 89 -98 ON TELE MONITOR. RIGHT UPPER ARM MID-LINE PATENT FLUSHED WITH NS NO S/S OF COMPLICATIONS. INCONTINENT OF BLADDER, KEPT CLEAN AND DRY. ON PAIN MANAGEMENT WITH PRN NORCO GIVEN TIMES TWO AND EFFECTIVE. BLOOD GLUCOSE CHECKED WITH NO S/S OF HYPO OR HYPERGLYCEMIA. HOB ELEVATED SEMI-CAMEJO'S POSITION, BILATERAL HALF SIDE RAILS UP X2. BED IN LOW POSITION, LOCKED, BED EXIT ALARM ON, CALL LIGHT IN REACH.
[2022-07-16 07:08] LABS: BASOPHILS % (AUTO) 0.1 % (0.0-2.0); HEMATOCRIT 29 % (33-45); HEMOGLOBIN 9.2 g/dL (11.5-14.8); LYMPHOCYTES # (AUTO) 0.8 K/uL (0.8-4.8); LYMPHOCYTES % (AUTO) 10.5 % (20.0-44.0); MEAN CORPUSCULAR HGB CONC 32 g/dl (31.0-36.0); MEAN CORPUSCULAR VOLUME 91 fL (82-100); MONOCYTES # (AUTO) 0.7 K/uL (0.1-1.30); MONOCYTES % (AUTO) 8.6 % (2.0-12.0); NEUTROPHILS # (AUTO) 6.1 K/uL (1.8-8.9); NEUTROPHILS % (AUTO) 80.8 % (43.0-81.0); PLATELET COUNT (AUTO) 359 K/uL (150-450); RED BLOOD CELL COUNT(AUTO) 3.19 MIL/uL (4.0-5.2); WHITE BLOOD COUNT (AUTO) 7.6 K/uL (4.3-11.0)
--- NOTE | 2022-07-16 07:10 | NUR ---
FIELD ACCOUNT DIRECTOR OPENING NOTES RECEIVED PT AWAKE IN BED AOX2. NO COMPLAINTS OF PAIN OR DISCOMFORT AT THIS TIME. RESPIRATIONS ARE EQUAL AND UNLABORED WITH NO SOB. ON NC 3L AND TOLERATING IT WELL WITH O2 SATURATION AT 97%. PT IS PO AND RECEIVES MEDS ORALLY. IV ACCESS ON MICHAEL ML SALINE LOCK PATENT AND INTACT. HOB ELEVATED TO PTS COMFORT. SIDERAILS UP AT ALL TIMES. BED LOCKED. CALL LIGHT WITHIN REACH. WILL CONTINUE CURRENT PLAN OF CARE.
[2022-07-16 07:28] LABS: CALCIUM, SERUM 7.7 mg/dL (8.5-10.1); CREATININE 0.8 mg/dL (0.6-1.3); POTASSIUM 4.2 mmol/L (3.5-5.1)
[2022-07-16] MEDS: BLOOD SUGAR DIAGNOSTIC 1 EACH STRIP IN SCH ×4 (07:30→23:36)
--- NOTE | 2022-07-16 08:05 | NUR ---
FOOTBALL PAD REPAIRER NOTES UPON PT ROUNDING PT COMPLAINED OF SOB. CHECKED O2 SATURATION AND IT WAS 80%. PT WAS ON NC 4L BUT CHANGED IT TO SIMPLE MASK AT 10L RT AT BESIDE. CONTACTED DR TRAVIS AND HE GAVE NEW ORDER FOR STAT ABG AND CXR. NOTED AND CARRIED OUT.
[2022-07-16] MEDS: methylPREDNISolone SOD SUCC 40 MG/ML VIAL IV SCH ×2 (08:10→18:02)
[2022-07-16 08:19] LABS: ABG BASE EXCESS 4.7 mmol/L; ABG OXYGEN SATURATION 86.7 % (92.0-98.5); ABG PCO2 39.7 mmHg (35.0-45.0); ABG PH 7.475 (7.350-7.450); AaDO2 259.8 mmHg; COHb 0.4 % (0.5-1.5); MetHb 0.1 % (0.0-1.5); O2Hb 86.3 % (94.0-97.0); SITE, ABG Right Radial; VENT MODE, BG 10L SM
[2022-07-16] MEDS: PANTOPRAZOLE 40 MG TABLET.DR PO SCH (08:33)
[2022-07-16] MEDS: FLUCONAZOLE (100 MG) 100 MG TABLET PO SCH (08:33)
[2022-07-16] MEDS: DIVALPROEX SODIUM 250 MG TABLET.DR PO SCH ×3 (08:33→18:02)
[2022-07-16] MEDS: risperiDONE 0.25 MG TABLET PO SCH ×3 (08:34→18:01)
[2022-07-16] MEDS: APIXABAN 5 MG TABLET PO SCH (08:35)
[2022-07-16] MEDS: INSULIN REGULAR, HUMAN 100 UNIT/ML 3 ML VIAL SQ PRN (08:37)
--- NOTE | 2022-07-16 08:55 | NUR ---
OCEAN CLAM BOAT CAPTAIN NOTE RT AT BEDSIDE VPER DR ANGY PRESCOTT TO PLACE HIGH FLOW O2 WILL F\U
--- NOTE | 2022-07-16 09:15 | NUR ---
HVAC MECHANICAL ENGINEER NOTE CHEST X RAY DONE WILL F\U
--- NOTE | 2022-07-16 09:28 | NUR ---
LUBRICATION TECHNICIAN NOTE RT AT BEDSIDE PLACE ON HIGH FLOW 40L FIO2 90% SATURATION 88-89 % ,WILL MONITOR
--- NOTE | 2022-07-16 10:09 | NUR ---
television repairman note dr lake at bedside notified that on high flow fio2 90% 40l satuartion 88% , per dr harley ok to transfer to icu and do abg in icu
--- NOTE | 2022-07-16 10:43 | NUR ---
BEDSIDE REPORT RECEIVED FROM KERA RENO AT ROOM 101 FOR TRANSFER TO ROOM 260. PT TRANSFERRED TO ROOM 260 VIA BED USING ACLS PROTOCOL. ALL BELONGINGS AND SUPPLIES BROUGHT WITH PATIENT. PT SETTLED IN 260, ICU MONITORING APPLIED. PT ALERT OX3, STATES SHE UNDERSTANDS TRANSFER TO ICU. PT CHECKED ON HOURLY AND PRN BY NURSING STAFF.
--- NOTE | 2022-07-16 10:45 | NUR ---
television repair teacher note transferred to icu as ordered b acls protocol ,report given to Madelyn parrish
[2022-07-16] MEDS ORDERED: DEXTROSE 50%-WATER 50 ML DISP.SYRIN IV PRN (12:00)
--- NOTE | 2022-07-16 12:30 | NUR ---
16F HINDS CATHETER INSERTED AT THIS TIME WITHOUT DIFFICULTY PER PATIENT REQUEST.
[2022-07-16] MEDS: ENOXAPARIN SODIUM 60 MG/0.6 ML DISP.SYRIN SQ SCH ×2 (14:34→23:54)
--- NOTE | 2022-07-16 18:53 | NUR ---
END OF SHIFT NOTE: PT APPEARS TO BE BREATHING MUCH BETTER THAN WHEN SHE TRANSFERRED TO ICU. PT IS CURRENTLY ON HIGH FLOW NASAL CANNULA 40L 80%. PT CHECKED ON HOURLY AND PRN BY NURSING STAFF.
--- NOTE | 2022-07-16 21:26 | NUR ---
PRIVACY SPECIALIST OPENING NOTE PT RECEIVED IN BED, ASLEEP BUT EASILY AROUSABLE, A&OX4, CALM, COOPERATIVE. PT NOTED TO HAVE HIGH FLOW NC AT 40L WITH FIO2 OF 80%; CURRENT O2SAT OF 93%; NOTED TO HAVE NON-PRODUCTIVE COUGH; NO OTHER S/S OF RESP DISTRESS, NO SOB, NON-LABORED AND EQUAL BREATHING. PT ATTACHED TO BEDSIDE MONITOR, SR WITH HR OF 82. HINDS INTACT AND PATENT, DRAINING CLEAR AND YELLOW URINE. IV ACCESS ON MICHAEL MIDLINE; NO MEDS/FLUIDS INFUSING THROUGH. BED IN LOWEST POSITION, CALL LIGHT WITHIN REACH, SIDE RAILS UP X2. WILL CONTINUE TO MONITOR THROUGHOUT THE NIGHT.
--- NOTE | 2022-07-16 21:41 | NUR ---
RN NOTE PT REPORTS OF A 7/10 CHEST PAIN THAT'S DESCRIBED ACHING. PT ADMINISTERED HYDROCODONE 10/325 MG 1 TAB. WILL MONITOR FOR EFFECTIVENESS.
[2022-07-17] VITALS (25 sets, daily range): BP systolic 51–146; BP diastolic 33–86
[2022-07-17 04:29] LABS: HEMATOCRIT 29 % (33-45); HEMOGLOBIN 9.3 g/dL (11.5-14.8); LYMPHOCYTES # (AUTO) 0.8 K/uL (0.8-4.8); LYMPHOCYTES % (AUTO) 10.5 % (20.0-44.0); MEAN CORPUSCULAR HGB CONC 32 g/dl (31.0-36.0); MEAN CORPUSCULAR VOLUME 90 fL (82-100); MONOCYTES # (AUTO) 0.4 K/uL (0.1-1.30); MONOCYTES % (AUTO) 5.2 % (2.0-12.0); NEUTROPHILS % (AUTO) 84.3 % (43.0-81.0); PLATELET COUNT (AUTO) 337 K/uL (150-450); RED BLOOD CELL COUNT(AUTO) 3.25 MIL/uL (4.0-5.2); WHITE BLOOD COUNT (AUTO) 7.1 K/uL (4.3-11.0)
[2022-07-17 04:42] LABS: CALCIUM, SERUM 8.3 mg/dL (8.5-10.1); CREATININE 0.8 mg/dL (0.6-1.3); MAGNESIUM 2.1 mg/dL (1.8-2.4); PHOSPHORUS 3.7 mg/dL (2.5-4.9); POTASSIUM 4.4 mmol/L (3.5-5.1)
[2022-07-17] MEDS: HYDROCODONE/APAP 10/325MG TABLET PO PRN ×3 (05:07→18:35)
--- NOTE | 2022-07-17 05:07 | NUR ---
RN NOTE PT COMPLAINS OF 7/10 CHEST PAIN. PT REQUESTS FOR PAIN MEDICINE. PT ADMINISTERED 1 TAB OF NORCO 10/325 MG. WILL MONITOR FOR EFFECTIVENESS.
[2022-07-17] MEDS: BLOOD SUGAR DIAGNOSTIC 1 EACH STRIP IN SCH ×3 (05:16→17:07)
--- NOTE | 2022-07-17 07:29 | NUR ---
UNEMPLOYMENT CLAIMS ADJUDICATOR CLOSING NOTE PT REMAINS IN BED, ASLEEP, BUT EASILY AROUSABLE, A&O X4, CALM, COOPERATIVE. PT CONTINUES TO BE ON HIGH-FLOW NC AT 40LPM AND FIO2 AT 80%; CONTINUES TO HAVE NON-PRODUCTIVE COUGH; NO OTHER S/S OF RESP DISTRESS, NO SOB, NON-LABORED AND EQUAL BREATHING. O2SAT RANGED FROM 88%-97%. PT ATTACHED TO BEDSIDE MONITOR SR WITH HR RANGING FROM 71-90. MICHAEL MIDLINE INTACT AND PATENT, FLUSHES EASILY WITH NO RESISTANCE; NO MEDS/FLUIDS INFUSING THROUGH IT. ALL DUE MEDS ADMINISTERED DURING THE NIGHT. BED IN LOWEST POSITION, CALL LIGHT WITHIN REACH, SIDE RAILS UP X2. WILL ENDORSE TO DAYSHIFT NURSE TO CONTINUE CARE.
--- NOTE | 2022-07-17 08:00 | NUR ---
RN NOTES RECEIVED PATIENT A&O X4, ON HF 40L/80%, CONTINUES TO HAVE NON-PRODUCTIVE COUGH; NO S/S OF RESP DISTRESS, NON-LABORED AND EQUAL BREATHING. HR-90 SINUS ON BEDSIDE MONITOR , MICHAEL MIDLINE INTACT AND PATENT. PATIENT NPO EXCEPT MEDS. ALL DUE MEDS ADMINISTERED. BED IN LOWEST POSITION, CALL LIGHT WITHIN REACH. WILL FOLLOW UP.
[2022-07-17] MEDS: DIVALPROEX SODIUM 250 MG TABLET.DR PO SCH ×3 (08:57→16:38)
[2022-07-17] MEDS: methylPREDNISolone SOD SUCC 40 MG/ML VIAL IV SCH ×2 (08:57→16:38)
[2022-07-17] MEDS: PANTOPRAZOLE 40 MG TABLET.DR PO SCH (08:57)
[2022-07-17] MEDS: risperiDONE 0.25 MG TABLET PO SCH ×3 (08:57→16:38)
[2022-07-17] MEDS: ENOXAPARIN SODIUM 60 MG/0.6 ML DISP.SYRIN SQ SCH (08:58)
[2022-07-17] MEDS: APIXABAN 5 MG TABLET PO SCH ×2 (11:34→16:45)
--- NOTE | 2022-07-17 12:24 | NUR ---
RN NOTES ADMINISTERED NARCO 10/325 MG PO PRN FOR UPPER MID ABDOMINAL PAIN 01/27 PER PATIENT REQUEST, BP-131/78, P-100, R-26.
[2022-07-17] MEDS: FLUCONAZOLE (100 MG) 100 MG TABLET PO SCH (12:29)
--- NOTE | 2022-07-17 18:35 | NUR ---
rn notes administered narco 10/325 mg po prn for pain 01/27 mid abdomen per patient request, patient tolerated dinner well, turn and reposition self in the bed. patient resumed HF 40l/ 80%, patient no acute respiratory distress, due medication administered, urine output was 500ml. call light within to reach. will follow up.
[2022-07-18] VITALS (25 sets, daily range): BP systolic 114–143; BP diastolic 67–89
[2022-07-18] MEDS: BLOOD SUGAR DIAGNOSTIC 1 EACH STRIP IN SCH ×5 (00:23→23:18)
[2022-07-18] MEDS: HYDROCODONE/APAP 10/325MG TABLET PO PRN ×4 (00:48→19:13)
[2022-07-18 04:45] LABS: HEMATOCRIT 28 % (33-45); HEMOGLOBIN 9.1 g/dL (11.5-14.8); LYMPHOCYTES # (AUTO) 0.4 K/uL (0.8-4.8); LYMPHOCYTES % (AUTO) 9.1 % (20.0-44.0); MEAN CORPUSCULAR HGB CONC 33 g/dl (31.0-36.0); MEAN CORPUSCULAR VOLUME 90 fL (82-100); MONOCYTES # (AUTO) 0.3 K/uL (0.1-1.30); MONOCYTES % (AUTO) 6.8 % (2.0-12.0); NEUTROPHILS # (AUTO) 4.1 K/uL (1.8-8.9); NEUTROPHILS % (AUTO) 84.1 % (43.0-81.0); PLATELET COUNT (AUTO) 312 K/uL (150-450); RED BLOOD CELL COUNT(AUTO) 3.12 MIL/uL (4.0-5.2); WHITE BLOOD COUNT (AUTO) 4.8 K/uL (4.3-11.0)
[2022-07-18 05:05] LABS: CALCIUM, SERUM 7.6 mg/dL (8.5-10.1); CREATININE 0.9 mg/dL (0.6-1.3); MAGNESIUM 1.9 mg/dL (1.8-2.4); PHOSPHORUS 2.9 mg/dL (2.5-4.9); POTASSIUM 4.5 mmol/L (3.5-5.1)
--- NOTE | 2022-07-18 07:17 | NUR ---
RN NOTE PT TOLERATES HIGH FLOW O2 40L 80%. NO SIGNS OF DISTRESS. PT O2 SAT AT 95%. DENIES ANY SOB AT THIS TIME. COMPLAINED OF EPIGASTRIC PAIN, REQUESTED FOR NORCO. GIVEN. PT ABLE TO MAKE NEEDS KNOWN, GOOD URINE OUTPUT. HINDS IN PLACE. ENDORSED TO JACQUELYN FOR KELSEY.
--- NOTE | 2022-07-18 08:00 | NUR ---
RN NOTES RECEIVED PATIENT RESUMED HF 40L/80%, BEDSIDE MONITOR SHOWS 95%, HR-94 SINUS, NO RESPIRATORY DISTRESS, MEDICATION WERE ADMINISTERED SCHEDULED, REFUSED PAIN AT THIS TIME. PATIENT A/O X4, ABLE TO VERBALIZED SELF WELL. TURN AND REPOSTION SELF IN THE BED. CALL LIGHT NEAR TO REACH. WILL FOLLOW UP.
[2022-07-18 08:01] LABS: ABG BASE EXCESS 4.5 mmol/L; ABG OXYGEN SATURATION 94.1 % (92.0-98.5); ABG PH 7.478 (7.350-7.450); ABG PO2 68.1 mmHg (75.0-100.0); AaDO2 461.4 mmHg; COHb 0.3 % (0.5-1.5); MetHb 0.2 % (0.0-1.5); O2Hb 93.6 % (94.0-97.0); SITE, ABG Right Radial; VENT MODE, BG HFNC 40LPM 80%
[2022-07-18] MEDS: PANTOPRAZOLE 40 MG TABLET.DR PO SCH (09:03)
[2022-07-18] MEDS: risperiDONE 0.25 MG TABLET PO SCH ×3 (09:03→16:19)
[2022-07-18] MEDS: DIVALPROEX SODIUM 250 MG TABLET.DR PO SCH ×3 (09:03→16:19)
[2022-07-18] MEDS: methylPREDNISolone SOD SUCC 40 MG/ML VIAL IV SCH ×2 (09:03→16:19)
[2022-07-18] MEDS: FLUCONAZOLE (100 MG) 100 MG TABLET PO SCH (09:03)
[2022-07-18] MEDS: APIXABAN 5 MG TABLET PO SCH ×2 (09:09→16:20)
[2022-07-18] MEDS: INSULIN REGULAR, HUMAN 100 UNIT/ML 3 ML VIAL SQ PRN ×2 (11:38→16:22)
--- NOTE | 2022-07-18 11:43 | NUR ---
rn notes get call from lab patient blood culture gram positive cocci, ID MD aware of . bs-175 mg/dl coverage given, change diet ccho 60g. patient on HF 40l/80%. no sob noted. call light within to reach. will follow up.
[2022-07-18] MEDS ORDERED: VANCOMYCIN 1.25 GM in IV D5W 250 ML IV ONE (13:00)
[2022-07-18] MEDS ORDERED: IV NS 0.9% 250 ML IV PRN (13:00)
--- NOTE | 2022-07-18 13:00 | NUR ---
RN NOTES ADMINISTERED NARCO 10/325 MG PO PRN PER PATIENT REQUEST PAIN 8/10 PER PAIN SCALE. PATIENT ON HF 40/65%, NO SOB NOTES.
[2022-07-18] MEDS: CEFEPIME 2 GM in IV D5W 100 ML IV SCH ×2 (13:26→21:09)
--- NOTE | 2022-07-18 14:20 | NUR ---
RN NOTES ECHO BUBBLE STUDY IS DONE , PATIENT STABLE REFUSED PAIN. WILL FOLLOW UP.
--- NOTE | 2022-07-18 19:13 | NUR ---
RN NOTES ADMINISTERED NARCO 10/325 MG PO PRN FOR GENERALIZED PAIN 01/27 PER PATIENT REQUEST. BP 116/69. P-86, R-15. CALL LIGHT WITHIN TO REACH. ENDORSED ONCOMING NURSE KELSEY.
--- NOTE | 2022-07-18 19:30 | NUR ---
RN NOTE RECEIVED PT COMPLAINING OF PAIN. JUST HAD NORCO. ON HIGH FLOW NC 40L 65%, NO SIGNS OF DISTRESS. DENIES SOB. ALL SAFETY MEASURES IN PLACE. WILL CONTINUE TO MONITOR.
[2022-07-19] VITALS (16 sets, daily range): BP systolic 115–152; BP diastolic 57–96
[2022-07-19] MEDS: VANCOMYCIN 1 GM in IV D5W 250ml IV SCH ×2 (00:18→14:58)
--- NOTE | 2022-07-19 03:08 | NUR ---
TITRATE FIO2 TO 50%,TAWANNA ROMEO NOTIFIED.
[2022-07-19] MEDS: CEFEPIME 2 GM in IV D5W 100 ML IV SCH ×3 (04:23→21:40)
[2022-07-19] MEDS: HYDROCODONE/APAP 10/325MG TABLET PO PRN ×3 (04:56→17:53)
[2022-07-19 05:03] LABS: HEMATOCRIT 27 % (33-45); HEMOGLOBIN 8.6 g/dL (11.5-14.8); LYMPHOCYTES # (AUTO) 0.3 K/uL (0.8-4.8); LYMPHOCYTES % (AUTO) 5.7 % (20.0-44.0); MEAN CORPUSCULAR HGB CONC 32 g/dl (31.0-36.0); MEAN CORPUSCULAR VOLUME 90 fL (82-100); MONOCYTES # (AUTO) 0.5 K/uL (0.1-1.30); MONOCYTES % (AUTO) 8.8 % (2.0-12.0); NEUTROPHILS # (AUTO) 4.8 K/uL (1.8-8.9); NEUTROPHILS % (AUTO) 85.5 % (43.0-81.0); PLATELET COUNT (AUTO) 285 K/uL (150-450); RED BLOOD CELL COUNT(AUTO) 2.99 MIL/uL (4.0-5.2); WHITE BLOOD COUNT (AUTO) 5.6 K/uL (4.3-11.0)
[2022-07-19 05:22] LABS: CALCIUM, SERUM 8.1 mg/dL (8.5-10.1); CREATININE 0.8 mg/dL (0.6-1.3); PHOSPHORUS 2.1 mg/dL (2.5-4.9); POTASSIUM 4.3 mmol/L (3.5-5.1)
[2022-07-19] MEDS ORDERED: DEXTROSE 50%-WATER 50 ML DISP.SYRIN IV PRN (06:00)
[2022-07-19] MEDS: BLOOD SUGAR DIAGNOSTIC 1 EACH STRIP IN SCH ×4 (07:00→21:46)
--- NOTE | 2022-07-19 07:19 | NUR ---
RN NOTE PT TOLERATES HIGH FLOW O2 NOW AT 50% FIO2 40L. NO SIGNS OF DISTRESS. DENIES ANY SOB OR PAIN AT THIS TIME. PT ABLE TO MAKE NEEDS KNOWN, GOOD URINE OUTPUT. HINDS IN PLACE. REMAIN AFEBRILE. BS 107. NO INSULIN COVERAGE GIVEN.
--- NOTE | 2022-07-19 07:30 | NUR ---
OPENING NOTE: REPORT RECEIVED FROM AGUEDA STACY. LABS AND ORDERS REVIEWED DURING REPORT
[2022-07-19] MEDS: FLUCONAZOLE (100 MG) 100 MG TABLET PO SCH (09:33)
[2022-07-19] MEDS: risperiDONE 0.25 MG TABLET PO SCH ×3 (09:34→17:16)
[2022-07-19] MEDS: methylPREDNISolone SOD SUCC 40 MG/ML VIAL IV SCH ×2 (09:34→17:16)
[2022-07-19] MEDS: APIXABAN 5 MG TABLET PO SCH ×2 (09:34→17:18)
[2022-07-19] MEDS: DIVALPROEX SODIUM 250 MG TABLET.DR PO SCH ×3 (09:34→17:16)
[2022-07-19] MEDS: PANTOPRAZOLE 40 MG TABLET.DR PO SCH (09:34)
[2022-07-19] MEDS ORDERED: K PHOS NEUTRAL 250 MG TABLET PO ONE (10:00)
[2022-07-19] MEDS ORDERED: Sodium Phosphate 15 MMOL in IV NS 0.9% 250 ML IV SCH (11:00)
--- NOTE | 2022-07-19 11:28 | NUR ---
BEDSIDE REPORT GIVEN TO CLARE RN FOR PATIENT TRANSFER TO [facility]. ALL BELONGINGS AND MEDS SENT WITH PATIENT.
[2022-07-19] MEDS ORDERED: APIXABAN 5 MG TABLET PO SCH ×2 (17:00)
[2022-07-19] MEDS: INSULIN REGULAR, HUMAN 100 UNIT/ML 3 ML VIAL SQ PRN ×2 (17:29→22:07)
--- NOTE | 2022-07-19 19:00 | NUR ---
PRODUCER CLOSING NOTE PATIENT LAYING IN BED, A/O X 3, ABLE TO MAKE NEEDS KNOWN, TOLERATING WELL ON HIGH FLOW NASAL CANNULA @ 40 ML/HR. LUANN SY IN PLACE TO BE REPLACED TONIGHT BY KERRIE NURSE, NURSING TELEPHONY ENGINEER JOHNNIE WAS MADE AWARE. SAFETY MEASURES IN PLACE: BED IN LOWEST LOCKED POSITION, SIDE RAILS UP X 2, CALL LIGHT WITHIN REACH. ALL NEEDS MET. WILL ENDORSE TO POTATO SEED CUTTER FOR KELSEY. Addendum: 07/19/22 at 1925 by CLARE CHEW RN TELE MONITOR IN PLACE READING NSR 70
--- NOTE | 2022-07-19 20:00 | NUR ---
TD RN OPENING NOTES RECEIVED PT. COMFORTABLY SLEEPING IN BED, EASILY AWAKEN. NO EVIDENCE OF PAIN/DISCOMFORT, NO FACIAL GRIMACING NOTED. PT ON HF, CURRENT SETTINGS WELL [place], NO SOB, NO DISTRESS. MICHAEL ML INTACT AND DRY. SAFETY PRECAUTIONS IMPLEMENTED: BED LOCKED AND IN LOWEST POSITION. CALL LIGHT WITH EASY REACH. CONTINUE WITH PLAN OF CARE.
--- NOTE | 2022-07-19 22:09 | NUR ---
TAWANNA TD NOTES Blood sugar at 2200: 120mg/dl, no insulin coverage given as ordered.
[2022-07-20] VITALS: BP 108/65
[2022-07-20] MEDS: VANCOMYCIN 1 GM in IV D5W 250ml IV SCH (01:00)
[2022-07-20] MEDS: HYDROCODONE/APAP 10/325MG TABLET PO PRN ×3 (01:01→15:07)
--- NOTE | 2022-07-20 01:01 | NUR ---
RN TD NOTES PT C/O PAIN 7/10 PER PAIN SCALE. ADMINISTERED NORCO 10/325 MG PO PRN ORDERED. PATIENT ON HF 20/40%, WELL TOLERATED, NO SOB, SAT 96%. BP 115/72, HR 78.
--- NOTE | 2022-07-20 01:29 | NUR ---
TD RN NOTES VANCO DOSE FOR 0100HRS WAS HELD D/T VANCO TROUGH LEVEL 22
--- NOTE | 2022-07-20 02:37 | NUR ---
TD RN NOTES NEW MIDLINE g18 ON RIGHT UPPER ARM INTACT AND PATENT .INSERTED BY SHAMIKA LANDIN .
[2022-07-20 04:00] VITALS: BP 116/64
[2022-07-20] MEDS: CEFEPIME 2 GM in IV D5W 100 ML IV SCH ×3 (04:00→20:48)
[2022-07-20 05:19] LABS: ABG BASE EXCESS 3.2 mmol/L; ABG OXYGEN SATURATION 95.5 % (92.0-98.5); ABG PCO2 40.4 mmHg (35.0-45.0); ABG PO2 77.6 mmHg (75.0-100.0); AaDO2 161.1 mmHg; COHb 0.3 % (0.5-1.5); MetHb 0.1 % (0.0-1.5); O2Hb 95.1 % (94.0-97.0); SITE, ABG Right Radial; VENT MODE, BG HFNC 20L 40%
--- NOTE | 2022-07-20 06:29 | NUR ---
TD RN CLOSING NOTES RESIDENT REMAINS IN STABLE CONDITION. ALERT AND ORIENTED X4, ABLE TO MAKE NEEDS KNOWN. CURRENTLY ON HF 20LPM/40%, WELL TOLERATED, SATTING 95%, NO SOB, NO DISTRESS. VS STABLE. ALL DUE MEDICATIONS GIVEN ORDERED. ALL NEEDS ATTENDED. CALL LIGHT WITHIN EASY REACH. SAFETY MEASURES IMPLEMENTED: BED LOCKED AND LOWEST POSITION.
--- NOTE | 2022-07-20 06:50 | NUR ---
TD rn notes abg result relayed to dr sherman with nno at this time.
[2022-07-20 07:31] LABS: HEMATOCRIT 25 % (33-45); HEMOGLOBIN 8.1 g/dL (11.5-14.8); LYMPHOCYTES # (AUTO) 0.3 K/uL (0.8-4.8); MEAN CORPUSCULAR HGB CONC 32 g/dl (31.0-36.0); MEAN CORPUSCULAR VOLUME 90 fL (82-100); MONOCYTES # (AUTO) 0.6 K/uL (0.1-1.30); MONOCYTES % (AUTO) 8.3 % (2.0-12.0); NEUTROPHILS % (AUTO) 86.7 % (43.0-81.0); PLATELET COUNT (AUTO) 270 K/uL (150-450); RED BLOOD CELL COUNT(AUTO) 2.82 MIL/uL (4.0-5.2)
[2022-07-20 07:35] LABS: CALCIUM, SERUM 7.3 mg/dL (8.5-10.1); CREATININE 0.8 mg/dL (0.6-1.3); MAGNESIUM 1.8 mg/dL (1.8-2.4); PHOSPHORUS 2.4 mg/dL (2.5-4.9); POTASSIUM 4.3 mmol/L (3.5-5.1)
--- NOTE | 2022-07-20 07:51 | NUR ---
RN OPENING NOTES RECEIVED PT. AWAKE A/OX 4, EASILY AWAKEN. NO EVIDENCE OF PAIN/DISCOMFORT, NO FACIAL GRIMACING NOTED. PT ON HF, CURRENT SETTINGS WELL TOLERATED, NO SOB, NO DISTRESS. MICHAEL ML INTACT AND DRY. SAFETY PRECAUTIONS IMPLEMENTED: BED LOCKED AND IN LOWEST POSITION. CALL LIGHT WITH EASY REACH.
[2022-07-20 08:00] VITALS: BP 120/71
[2022-07-20] MEDS: methylPREDNISolone SOD SUCC 40 MG/ML VIAL IV SCH ×2 (08:31→17:09)
[2022-07-20] MEDS: PANTOPRAZOLE 40 MG TABLET.DR PO SCH (08:31)
[2022-07-20] MEDS: risperiDONE 0.25 MG TABLET PO SCH ×3 (08:31→17:09)
[2022-07-20] MEDS: FLUCONAZOLE (100 MG) 100 MG TABLET PO SCH (08:31)
[2022-07-20] MEDS: DIVALPROEX SODIUM 250 MG TABLET.DR PO SCH ×3 (08:31→17:17)
[2022-07-20] MEDS: BLOOD SUGAR DIAGNOSTIC 1 EACH STRIP IN SCH ×4 (08:32→22:23)
[2022-07-20] MEDS: APIXABAN 5 MG TABLET PO SCH ×2 (08:32→17:08)
[2022-07-20] MEDS: INSULIN REGULAR, HUMAN 100 UNIT/ML 3 ML VIAL SQ PRN ×4 (08:33→22:21)
[2022-07-20 12:00] VITALS: BP 117/66
--- NOTE | 2022-07-20 12:30 | NUR ---
RN NOTE SPOKE WITH PHARMACY REGARDING PATIENTS VANCO TROUGH OF 22. OKAY TO GIVE DOSE, ALREADY ADJUSTED FORM 1G TO .75G.
[2022-07-20] MEDS: VANCOMYCIN HCL 0.75 GM in IV D5W 250 ML IV SCH (12:51)
[2022-07-20] MEDS ORDERED: K PHOS NEUTRAL 250 MG TABLET PO ONE (14:00)
[2022-07-20 16:00] VITALS: BP 116/71
--- NOTE | 2022-07-20 18:32 | NUR ---
RN CLOSING NOTE PATIENT LAYING IN BED, A/O X 4, ABLE TO MAKE NEEDS KNOWN, TOLERATING WELL ON SIMPLE MASK 8L. LUANN MIDLINE IN. HINDS CATHETER DRAINING TO GRAVITY. SAFETY MEASURES IN PLACE: BED IN LOWEST LOCKED POSITION, SIDE RAILS UP X 2, CALL LIGHT WITHIN REACH. ALL NEEDS MET. WILL ENDORSE TO AUDIO VISUAL DIRECTOR FOR KELSEY.
[2022-07-20 20:00] VITALS: BP 116/74
--- NOTE | 2022-07-20 20:00 | NUR ---
TD RN OPENING NOTES RECEIVED PT. COMFORTABLY SLEEPING IN BED, EASILY AWAKEN. NO EVIDENCE OF PAIN/DISCOMFORT, NO FACIAL GRIMACING NOTED. PT ON ON 8 LITERS VIA SIMPLE MASK TOLERATING WELL SATING 98%, NO SOB, NO DISTRESS. MICHAEL ML INTACT AND DRY.ALL DUE MEDS GIVEN ORDERED ,NO ASE NOTED. V/S STABLE AFEBRILE . SAFETY PRECAUTIONS IMPLEMENTED: BED LOCKED AND IN LOWEST POSITION. CALL LIGHT WITH EASY REACH. CONTINUE TO MONITOR PTS.
--- NOTE | 2022-07-20 22:24 | NUR ---
td rn notes Blood sugar for 10 pm is 132mg/dl 2 units of regular insulin given per sliding scale
[2022-07-21] VITALS: BP 117/77
[2022-07-21] MEDS: HYDROCODONE/APAP 10/325MG TABLET PO PRN ×4 (00:02→21:38)
[2022-07-21] MEDS: VANCOMYCIN HCL 0.75 GM in IV D5W 250 ML IV SCH ×2 (00:03→13:55)
--- NOTE | 2022-07-21 03:57 | NUR ---
Pt placed on 4L NC. SPO2 96%. States it is more comfortable for her, and tolerates well.
[2022-07-21 04:00] VITALS: BP 113/73
[2022-07-21] MEDS: CEFEPIME 2 GM in IV D5W 100 ML IV SCH (04:03)
--- NOTE | 2022-07-21 06:42 | NUR ---
TD RN CLOSING NOTES RESIDENT REMAINS IN STABLE CONDITION. ALERT AND ORIENTED X4, ABLE TO MAKE NEEDS KNOWN. CURRENTLY ON 4LITTERS VIA NC WELL TOLERATED, SATING 99%, NO SOB, NO DISTRESS. VS STABLE. ALL DUE MEDICATIONS GIVEN ORDERED. ALL NEEDS ATTENDED. CALL LIGHT WITHIN EASY REACH. SAFETY MEASURES IMPLEMENTED: BED LOCKED AND LOWEST POSITION.
--- NOTE | 2022-07-21 07:15 | NUR ---
AM ARLETTE OPENING NOTES: RECEIVED PATIENT IN BED, AWAKE, ALERT, ORIENTED X 4. PATIENT HAS NO SOB NOTED AT THIS TIME, BREATHING EVEN AND UNLABORED. ON OXYGEN @ 4L/MIN VIA N/C WITH OXYGEN SATURATION OF 99%. ON SR WITH HR OF 83 PER TELE MONITOR. PATIENT HAS IV ACCESS ON RIGHT UPPER ARM MIDLINE, SITE PATENT, FLUSHES WELL WITH NO S/S INFILTRATION NOTED. HINDS CATHETER IN PLACE, DRAINING WITH YELLOW COLORED URINE, NO SEDIMENTATION AND NO HEMATURIA NOTED. BED LOCKED AND IN LOWEST POSITION WITH BED ALARM ON. ALL SAFETY MEASURES IN PLACE. CALL LIGHT WITHIN REACH. WILL CONTINUE TO MONITOR PATIENT THROUGHOUT SHIFT.
[2022-07-21 08:00] VITALS: BP 110/64
[2022-07-21] MEDS: BLOOD SUGAR DIAGNOSTIC 1 EACH STRIP IN SCH ×4 (08:15→21:36)
[2022-07-21] MEDS: methylPREDNISolone SOD SUCC 40 MG/ML VIAL IV SCH ×2 (08:40→16:35)
[2022-07-21] MEDS: PANTOPRAZOLE 40 MG TABLET.DR PO SCH (08:41)
[2022-07-21] MEDS: DIVALPROEX SODIUM 250 MG TABLET.DR PO SCH ×3 (08:41→16:35)
[2022-07-21] MEDS: risperiDONE 0.25 MG TABLET PO SCH ×3 (08:41→16:35)
[2022-07-21] MEDS: FLUCONAZOLE (100 MG) 100 MG TABLET PO SCH (08:41)
[2022-07-21] MEDS: APIXABAN 5 MG TABLET PO SCH ×2 (08:42→16:36)
[2022-07-21 12:00] VITALS: BP 118/74
[2022-07-21 13:11] LABS: HEMATOCRIT 28 % (33-45); HEMOGLOBIN 8.6 g/dL (11.5-14.8); LYMPHOCYTES # (AUTO) 0.2 K/uL (0.8-4.8); LYMPHOCYTES % (AUTO) 2.1 % (20.0-44.0); MEAN CORPUSCULAR HGB CONC 31 g/dl (31.0-36.0); MEAN CORPUSCULAR VOLUME 94 fL (82-100); MONOCYTES # (AUTO) 0.3 K/uL (0.1-1.30); MONOCYTES % (AUTO) 3.3 % (2.0-12.0); NEUTROPHILS # (AUTO) 9.5 K/uL (1.8-8.9); NEUTROPHILS % (AUTO) 94.6 % (43.0-81.0); PLATELET COUNT (AUTO) 259 K/uL (150-450); WHITE BLOOD COUNT (AUTO) 10.1 K/uL (4.3-11.0)
--- NOTE | 2022-07-21 13:33 | NUR ---
CALLED PHARMACY AND INFORMED THAT VANCO TROUGH IS STILL PENDING AND WAS TOLD TO JUST WAIT FOR THE RESULT. MEDICATION WAS SUPPOSED TO BE GIVEN @ 1300
[2022-07-21 13:48] LABS: CALCIUM, SERUM 7.7 mg/dL (8.5-10.1); CREATININE 0.9 mg/dL (0.6-1.3); MAGNESIUM 1.8 mg/dL (1.8-2.4); PHOSPHORUS 2.1 mg/dL (2.5-4.9); POTASSIUM 4.7 mmol/L (3.5-5.1)
--- NOTE | 2022-07-21 13:55 | NUR ---
RECEIVED A CLL FROM THE PHARMACY AND SAID TO GIVE THE VANCO ORDERED,. TROUGH IS 15. MED GIVEN ORDERED.
[2022-07-21 14:12] LABS: ALBUMIN 1.6 g/dL (3.4-5.0); BILIRUBIN,TOTAL 0.2 mg/dL (0.2-1.0); TOTAL PROTEIN, SERUM 5.3 g/dL (6.4-8.2)
[2022-07-21] MEDS ORDERED: K PHOS NEUTRAL 250 MG TABLET PO ONE (15:00)
[2022-07-21 16:00] VITALS: BP 116/69
[2022-07-21] MEDS ORDERED: NEUTRA PHOS 1 POWD.PACKET PO ONE (16:00)
[2022-07-21] MEDS: INSULIN REGULAR, HUMAN 100 UNIT/ML 3 ML VIAL SQ PRN (17:03)
--- NOTE | 2022-07-21 18:34 | NUR ---
AR[facility] TELE PM CLOSING NOTES: PATIENT IN BED, ASLEEP BUT EASILY AROUSES TO VOICE AND TOUCH. PATIENT IS ALERT, ORIENTED X 4. ON OXYGEN @ 4L/MIN VIA N/C WITH OXYGEN SATURATION OF 97%. ON SR WITH HR OF 94 ON TELE MONITOR. PATIENT REMAINS STABLE THROUGHOUT SHIFT. IV ACCESS ON RIGHT UPPER ARM MIDLINE IS INTACT, NO S/S INFILTRATION NOTED. ALL NEEDS MET AND ANTICIPATED. ALL SAFETY MEASURES IMPLEMENTED THE ENTIRE SHIFT. BED LOCKED AND IN LOWEST POSITION WITH BED ALARM ON. WILL ENDORSE TO INCOMING NURSE FOR CONTINUITY OF CARE.
[2022-07-21 20:00] VITALS: BP 108/69
--- NOTE | 2022-07-21 20:00 | NUR ---
ARLETTE RN NOTE PT IN BED ASLEEP, AROUSABLE. A/O X 4, NO SOB, NO DISTRESS OR DISCOMFORT NOTED. DENIES PAIN. ON TELE SR WITH ELEVATED T WAVE HR 85. MICHAEL MIDLINE INTACT AND PATENT. NO S/S OF HYPO OR HYPERGLYCEMIA NOTED. KEPT HER DRY AND CLEAN. ALL NEEDS ATTENDED. VSS. CONTINUE TO MONITOR HER.
[2022-07-22] VITALS: BP 102/59
[2022-07-22] MEDS: VANCOMYCIN HCL 0.75 GM in IV D5W 250 ML IV SCH ×2 (01:10→12:44)
[2022-07-22 04:00] VITALS: BP 120/69
--- NOTE | 2022-07-22 06:32 | NUR ---
ARLETTE RN NOTE PT IN BED ASLEEP. NO DISTRESS OR DISCOMFORT NOTED. DENIES PAIN. ON TELE SR HR 80. SIDE RAILS UP X 2. CALL LIGHT WITHIN REACH. VSS. WILL ENDORSE TO DAY SHIFT NURSE CONTINUE TO CARE
[2022-07-22 06:48] LABS: HEMATOCRIT 26 % (33-45); HEMOGLOBIN 8.4 g/dL (11.5-14.8); LYMPHOCYTES # (AUTO) 0.5 K/uL (0.8-4.8); LYMPHOCYTES % (AUTO) 6.3 % (20.0-44.0); MEAN CORPUSCULAR HGB CONC 33 g/dl (31.0-36.0); MEAN CORPUSCULAR VOLUME 91 fL (82-100); MONOCYTES # (AUTO) 0.5 K/uL (0.1-1.30); MONOCYTES % (AUTO) 5.7 % (2.0-12.0); PLATELET COUNT (AUTO) 276 K/uL (150-450); RED BLOOD CELL COUNT(AUTO) 2.82 MIL/uL (4.0-5.2)
[2022-07-22 07:10] LABS: CALCIUM, SERUM 7.8 mg/dL (8.5-10.1); CREATININE 0.7 mg/dL (0.6-1.3); MAGNESIUM 1.8 mg/dL (1.8-2.4); PHOSPHORUS 2.6 mg/dL (2.5-4.9); POTASSIUM 5.3 mmol/L (3.5-5.1)
--- NOTE | 2022-07-22 07:13 | NUR ---
AM MED SURG OPENING NOTES: RECEIVED PATIENT IN BED, AWAKE, AOX4. NO SOB NOTED AT THIS TIME, BREATHING EVEN AND UNLABORED. NC 4L 02 AT 97%. MICHAEL MIDLINE. BED LOCKED AND IN LOWEST POSITION WITH BED ALARM ON. SIDE RAILS UP X 2. CALL LIGHT WITHIN REACH ALL SAFETY MEASURES IN PLACE. WILL CONTINUE TO MONITOR PATIENT.
[2022-07-22 08:00] VITALS: BP 118/68
[2022-07-22] MEDS: BLOOD SUGAR DIAGNOSTIC 1 EACH STRIP IN SCH ×4 (08:17→22:33)
[2022-07-22] MEDS: APIXABAN 5 MG TABLET PO SCH ×2 (08:23→16:53)
[2022-07-22] MEDS: FLUCONAZOLE (100 MG) 100 MG TABLET PO SCH (08:24)
[2022-07-22] MEDS: PANTOPRAZOLE 40 MG TABLET.DR PO SCH (08:24)
[2022-07-22] MEDS: risperiDONE 0.25 MG TABLET PO SCH ×3 (08:24→16:53)
[2022-07-22] MEDS: DIVALPROEX SODIUM 250 MG TABLET.DR PO SCH ×3 (08:24→16:53)
[2022-07-22] MEDS: methylPREDNISolone SOD SUCC 40 MG/ML VIAL IV SCH ×2 (08:25→16:53)
[2022-07-22] MEDS: HYDROCODONE/APAP 10/325MG TABLET PO PRN ×3 (08:33→22:02)
[2022-07-22 12:00] VITALS: BP 112/62
--- NOTE | 2022-07-22 12:43 | NUR ---
spoke with Xiomara at the pharmacy and said it's ok to give Vanco as ordered, trough result yesterday was 15. med given as ordered
[2022-07-22 16:00] VITALS: BP 108/66
[2022-07-22] MEDS ORDERED: SODIUM POLYSTYRENE SULF. PWD 15 GM UDC PO ONE (16:00)
[2022-07-22] MEDS: INSULIN REGULAR, HUMAN 100 UNIT/ML 3 ML VIAL SQ PRN ×2 (17:04→22:19)
--- NOTE | 2022-07-22 18:41 | NUR ---
AM MED SURG OPENING NOTES: PATIENT IN BED, AWAKE, AOX4. NO SOB NOTED AT THIS TIME, BREATHING EVEN AND UNLABORED. NC 4L 02 AT 97%. MICHAEL MIDLINE. NO LONGER TELE PATIENT. BED LOCKED AND IN LOWEST POSITION WITH BED ALARM ON. SIDE RAILS UP X 2. CALL LIGHT WITHIN REACH ALL SAFETY MEASURES IN PLACE. WILL CONTINUE TO MONITOR PATIENT. Addendum: 07/22/22 at 1908 by ÁNGEL LEE RN DINING ROOM COORDINATOR CLOSING NOTES PATIENT IN BED, AWAKE, AOX4. NO SOB, BREATHING EVEN & UNLABORED. NASAL CANULA 4L 02 AT 97%. MICHAEL MIDLINE. NO LONGER TELE PATIENT. BED LOCKED AND IN LOWEST POSITION WITH BED ALARM ON. SIDE RAILS UP X 2. CALL LIGHT WITHIN REACH ALL SAFETY MEASURES IN PLACE. WILL ENDORSE TO MARKETING DEVELOPMENT SPECIALIST NURSE.
--- NOTE | 2022-07-22 19:35 | NUR ---
OFFICE SWEEPER OPENING NOTE RECEIVED PATIENT IN BED, AWAKE. PT A/OX4, ABLE TO MAKE NEEDS KNOWN. NO SOB NOTED AT THIS TIME, BREATHING EVEN AND UNLABORED. PT ON O2 NC 4LPM. HAS R UA MIDLINE, INTACT, AND PATENT. SAFETY MEASURES IN PLACE: BED LOCKED AND IN LOWEST POSITION WITH BED ALARM ON. SIDE RAILS UP X 2. CALL LIGHT WITHIN REACH. WILL CONTINUE TO MONITOR PATIENT.
[2022-07-22 20:00] VITALS: BP 117/71
--- NOTE | 2022-07-22 22:00 | NUR ---
MS RN NOTE PT C/O GENERALIZED PAIN. PAIN MED NORCO ADMINISTERED TO PT.
[2022-07-23] VITALS: BP 112/70
[2022-07-23] MEDS: VANCOMYCIN HCL 0.75 GM in IV D5W 250 ML IV SCH ×2 (01:25→12:13)
[2022-07-23 04:00] VITALS: BP 103/63
--- NOTE | 2022-07-23 07:00 | NUR ---
MS RN CLOSING NOTE PT IN BED ASLEEP. NO DISTRESS OR DISCOMFORT NOTED. DENIES PAIN. ON TELE SR HR 76. SAFETY MEASURES IN PLACE: SIDE RAILS UP X 2. CALL LIGHT WITHIN REACH. BED IN LOW POSITION. WILL ENDORSE TO DAY SHIFT NURSE FOR KELSEY.
--- NOTE | 2022-07-23 07:20 | NUR ---
ALARM INVESTIGATOR OPENING NOTES RECEIVED PATIENT IN BED, PATIENT IS ALERT, ORIENTED X 4. ON OXYGEN @ 4L/MIN VIA N/C WITH OXYGEN SATURATION OF 100%. IV ACCESS ON RIGHT UPPER ARM MIDLINE IS INTACT, NO S/S INFILTRATION NOTED. ALL SAFETY MEASURES IMPLEMENTED. BED LOCKED AND IN LOWEST POSITION WITH BED ALARM ON. WILL CONTINUE TO MONITOR.
[2022-07-23 08:00] VITALS: BP 125/77
[2022-07-23] MEDS: BLOOD SUGAR DIAGNOSTIC 1 EACH STRIP IN SCH ×4 (08:17→22:00)
[2022-07-23 08:53] LABS: HEMATOCRIT 28 % (33-45); HEMOGLOBIN 8.7 g/dL (11.5-14.8); LYMPHOCYTES # (AUTO) 0.5 K/uL (0.8-4.8); MEAN CORPUSCULAR HGB CONC 32 g/dl (31.0-36.0); MEAN CORPUSCULAR VOLUME 91 fL (82-100); MONOCYTES # (AUTO) 0.5 K/uL (0.1-1.30); MONOCYTES % (AUTO) 6.2 % (2.0-12.0); NEUTROPHILS # (AUTO) 7.7 K/uL (1.8-8.9); NEUTROPHILS % (AUTO) 87.8 % (43.0-81.0); PLATELET COUNT (AUTO) 296 K/uL (150-450); RED BLOOD CELL COUNT(AUTO) 3.01 MIL/uL (4.0-5.2); WHITE BLOOD COUNT (AUTO) 8.7 K/uL (4.3-11.0)
[2022-07-23] MEDS: methylPREDNISolone SOD SUCC 40 MG/ML VIAL IV SCH ×2 (08:54→16:48)
[2022-07-23] MEDS: DIVALPROEX SODIUM 250 MG TABLET.DR PO SCH ×3 (09:01→16:39)
[2022-07-23] MEDS: PANTOPRAZOLE 40 MG TABLET.DR PO SCH (09:02)
[2022-07-23] MEDS: risperiDONE 0.25 MG TABLET PO SCH ×3 (09:02→16:40)
[2022-07-23] MEDS: APIXABAN 5 MG TABLET PO SCH ×2 (09:02→16:38)
[2022-07-23] MEDS: FLUCONAZOLE (100 MG) 100 MG TABLET PO SCH (09:03)
[2022-07-23] MEDS: HYDROCODONE/APAP 10/325MG TABLET PO PRN ×3 (09:11→22:40)
[2022-07-23 09:28] LABS: CALCIUM, SERUM 7.3 mg/dL (8.5-10.1); CREATININE 0.8 mg/dL (0.6-1.3); MAGNESIUM 1.6 mg/dL (1.8-2.4); PHOSPHORUS 2.2 mg/dL (2.5-4.9)
[2022-07-23 12:00] VITALS: BP 125/77
--- NOTE | 2022-07-23 12:11 | NUR ---
SPOKE WITH KAMALA PHARMACIST AND SAID THAT IT'S OK TO GIVE VANCO 750 MG ORDERED, LAST TROUGH OF 15 WAS LAST DONE ON 07/21/22
[2022-07-23] MEDS: INSULIN REGULAR, HUMAN 100 UNIT/ML 3 ML VIAL SQ PRN (12:32)
[2022-07-23] MEDS ORDERED: DIVA250T4 PO (14:14)
[2022-07-23] MEDS ORDERED: VANC750F2 IV (14:14)
[2022-07-23] MEDS ORDERED: RISP0.2515 PO (14:14)
[2022-07-23] MEDS ORDERED: APIX5TAB PO (14:14)
[2022-07-23 16:00] VITALS: BP 129/71
[2022-07-23] MEDS ORDERED: NEUTRA PHOS 1 POWD.PACKET PO ONE (16:00)
--- NOTE | 2022-07-23 17:00 | NUR ---
SPOKE WITH PACKAGE SORTER PALMER @ [phone] AND SAID THAT THE PATIENT WILL NOT BE DISCHARGED TODAY BUT TOMORROW. PATIENT INFORMED.
--- NOTE | 2022-07-23 18:55 | NUR ---
MS KNOT PICKER CLOTH CLOSING NOTES PATIENT IN BED, ASLEEP BUT EASILY AROUSES TO VOICE. PATIENT IS ALERT, ORIENTED X3. ON OXYGEN @ 4L/MIN VIA N/C WITH OXYGEN SATURATION OF 100%. IV ACCESS ON RIGHT UPPER ARM MIDLINE IS INTACT, NO S/S INFILTRATION NOTED. NO RESPIRATORY DISTRESS NOTED DURING SHIFT.HINDS CATHETER IN PLACE EMPTIED ###ML URINE, NO REDNESS, NO BLOOD, NO SEDIMENTATION NOTED. ALL SAFETY MEASURES IMPLEMENTED. BED LOCKED AND IN LOWEST POSITION WITH BED ALARM ON. CALL LIGHT WITHIN REACH. WILL ENDORSE TO SPINNING ROOM WORKER NURSE FOR CONTINUITY OF CARE.
[2022-07-23 20:00] VITALS: BP 108/50
[2022-07-24] VITALS: BP 117/74
[2022-07-24] MEDS: VANCOMYCIN 0.75 GM in IV NS 0.9% 250 ML IV SCH ×2 (00:54→12:40)
[2022-07-24 04:00] VITALS: BP 117/73
[2022-07-24] MEDS: HYDROCODONE/APAP 10/325MG TABLET PO PRN ×3 (06:54→20:40)
[2022-07-24] MEDS: BLOOD SUGAR DIAGNOSTIC 1 EACH STRIP IN SCH ×4 (07:30→22:05)
[2022-07-24] MEDS: INSULIN REGULAR, HUMAN 100 UNIT/ML 3 ML VIAL SQ PRN ×2 (07:32→17:01)
[2022-07-24] MEDS: PANTOPRAZOLE 40 MG TABLET.DR PO SCH (07:41)
[2022-07-24] MEDS: risperiDONE 0.25 MG TABLET PO SCH ×3 (07:42→16:18)
[2022-07-24] MEDS: DIVALPROEX SODIUM 250 MG TABLET.DR PO SCH ×3 (07:42→16:18)
[2022-07-24] MEDS: methylPREDNISolone SOD SUCC 40 MG/ML VIAL IV SCH ×2 (07:44→16:18)
[2022-07-24] MEDS: APIXABAN 5 MG TABLET PO SCH ×2 (07:46→16:19)
[2022-07-24] MEDS: FLUCONAZOLE (100 MG) 100 MG TABLET PO SCH (07:47)
[2022-07-24 07:48] LABS: CALCIUM, SERUM 7.1 mg/dL (8.5-10.1); CREATININE 0.7 mg/dL (0.6-1.3)
[2022-07-24 08:00] VITALS: BP 115/70
--- NOTE | 2022-07-24 11:50 | NUR ---
BLOOD SUGAR IS 106, NO INSULIN GIVEN PER SCALE
[2022-07-24 12:00] VITALS: BP 115/76
--- NOTE | 2022-07-24 13:31 | NUR ---
PATIENT COMPLIANT OF ON MEDIAL CHEST PAIN, REQUESTED FOR PAIN MEDICATION, PATIENT DESCRIBE THE PAIN /10, NORCO 10/325 GIVEN PO, REASSESS IN 30 MINUTES.
[2022-07-24 16:00] VITALS: BP 114/76
--- NOTE | 2022-07-24 18:25 | NUR ---
PATIENT IS AWAKE,ALERT, ORIENTEDX4, NO COMPLAINT OF PAIN, NO SIGN OF IN DISTRESS, HAVE A GOOD APPETITE, VITAL SIGNS ARE STABLE, PLANNING FOR DISCHARGE, WAITING FOR INSURANCE AUTHORIZATION, MICHAEL MIDLINE PATENT,FLUIDS INFUSING WELL. HINDS CATHETER IS PATENT. BED IN LOW POSITION, CALL LIGHT WITHIN REACH.
[2022-07-24 18:39] LABS: IRON, SERUM 28 ug/dl (50-175); TOTAL IRON BINDING CAPACITY 246 ug/dl (250-450)
[2022-07-24 18:54] LABS: FERRITIN 76 ng/mL (8-388)
--- NOTE | 2022-07-24 19:30 | NUR ---
MS1 RN NOTES RECEIVED LAYING ON BED,A/O X4,ABLE TO VERBALIZED NEEDS,PALE LOOKING,O2 IN USED AT 4L/NC TO KEEP O2 SAT ABOVE 90%.O2 SAT 97% THIS TIME.WITH MICHAEL MIDLINE,NS AT TKO RATE INFUSING WELL.NO SKIN ISSUES,CALL LIGHT IN REACH,NEEDS ANTICIPATED.
[2022-07-24 20:00] VITALS: BP 118/71
--- NOTE | 2022-07-24 20:40 | NUR ---
MS1 RN NOTES C/O GENERALIZED PAIJ 7/10 ON PAIN SCALE,NORCO 10/325MG,1 TAB PO GIVEN ORDERED AND PER PATIENT REQUEST.
[2022-07-25] MEDS: VANCOMYCIN 0.75 GM in IV NS 0.9% 250 ML IV SCH ×2 (00:22→12:07)
[2022-07-25] MEDS: HYDROCODONE/APAP 10/325MG TABLET PO PRN ×2 (03:03→11:39)
--- NOTE | 2022-07-25 03:03 | NUR ---
MS1 RN NOTES AWAKE,HAVING GENERALIZED PAIN 7/10 ON PAIN SCALE, NORCO 10/325MG,1 TAB PO GIVEN ORDERED AND PER PATIENT REQUEST.VITAL SIGNS STABLE.
[2022-07-25 04:00] VITALS: BP 116/62
--- NOTE | 2022-07-25 06:43 | NUR ---
MS1 RN NOTES ON BED,SLEPT WITH INTERVALS,IN PAIN WHEN AWAKE,PAIN MANAGEMENT EFFECTIVE.ALWAYS ASKING FOR FOOD.DISCHARGE PLANNING TO SNF,AWAITING AUTHORIZATION FROM INSURANCE COMPANY.IN NO ACUTE DISTRESS.
--- NOTE | 2022-07-25 07:25 | NUR ---
PROPULSION MACHINERY SERVICE ENGINEER OPENING NOTES Received pt awake in bed AOx4. No complaints of pain or discomfort at this time. Respirations are equal and unlabored with no SOB. PT is on NC 4L and tolerating it well. IV access on MICHAEL midline patent and intact. HOB elevated to pts comfort. Siderails up at all times. Call light within reach. Will continue current plan of care,.
[2022-07-25] MEDS: BLOOD SUGAR DIAGNOSTIC 1 EACH STRIP IN SCH ×3 (07:30→16:59)
[2022-07-25 08:22] LABS: ALBUMIN 1.6 g/dL (3.4-5.0); BILIRUBIN,TOTAL 0.1 mg/dL (0.2-1.0); TOTAL PROTEIN, SERUM 4.9 g/dL (6.4-8.2)
[2022-07-25] MEDS: DIVALPROEX SODIUM 250 MG TABLET.DR PO SCH ×3 (09:16→17:07)
[2022-07-25] MEDS: FERROUS SULFATE (325 MG) 325 MG/TAB TABLET PO SCH ×2 (09:16→17:07)
[2022-07-25] MEDS: PANTOPRAZOLE 40 MG TABLET.DR PO SCH (09:16)
[2022-07-25] MEDS: risperiDONE 0.25 MG TABLET PO SCH ×3 (09:16→17:07)
[2022-07-25] MEDS: APIXABAN 5 MG TABLET PO SCH ×2 (09:19→17:10)
[2022-07-25] MEDS: methylPREDNISolone SOD SUCC 40 MG/ML VIAL IV SCH ×2 (09:21→17:15)
[2022-07-25] MEDS: FLUCONAZOLE (100 MG) 100 MG TABLET PO SCH (10:01)
--- NOTE | 2022-07-25 10:34 | NUR ---
RN NOTES COVID TEST DONE, SENT TO THE LAB. PLAN OF CARE CONTINUE.
[2022-07-25 12:00] VITALS: BP 110/71
[2022-07-25] MEDS ORDERED: ATOVAQUONE SUSP 750 MG/5 ML PACKET PO SCH (13:00)
--- NOTE | 2022-07-25 14:30 | NUR ---
RN NOTES NOTED ID RECOMMENDATION, INFORMED DR. MCCOLLUM, WITH ORDER TO FOLLOW ID RECOMMENDATION, NOTED AND CARRIED OUT. DISCHARGE SUMMARY INSTRUCTIONS REVIEWED WITH THE PATIENT, CONFIRMED UNDERSTANDING. DISCHARGE SUMMARY INSTRUCTIONS SIGNED BY THE PATIENT. CALLED [facility], SPOKE TO BERTHA AND GAVE REPORT, CONFIRMED UNDERSTANDING. AWAITING FOR TRANSPORTATION. MIDLINE WILL KEEP DUE TO PATIENT WILL BE ON IV ATB UNTIL 07/30/22. PLAN OF CARE CONTINUE.
--- NOTE | 2022-07-25 18:15 | NUR ---
BOBBIN DUMPER NOTES PATIENT PICKED UP BY 2 EMT'S, ALL PAPERWORKS AND PERSONAL BELONGINGS RELEASED TO THE PATIENT.
== END 2022-07-25 18:47 | DRG 720 ==
LOC: ER 17:40 → TRANSITION 07-02 01:13 → TELE1 07-03 13:23 → ICU 07-16 10:44 → TELE-TD 07-19 12:09 → MEDSG1 07-22 15:59
PROVIDERS: ADMIT Nurse Practitioner Acute Care; ATTEND Nurse Practitioner Acute Care
PROC: 05HB33Z Insertion of Infusion Device into Right Basilic Vein, Percutaneous Approach (ICD-10-PCS; principal; 2022-07-05)
PROC: 05H933Z Insertion of Infusion Device into Right Brachial Vein, Percutaneous Approach (ICD-10-PCS; 2022-07-20)
DX: A41.89 Other specified sepsis (principal); J96.21 Acute and chronic respiratory failure with hypoxia; E43 Unspecified severe protein-calorie malnutrition; F05 Delirium due to known physiological condition; D68.59 Other primary thrombophilia; J15.9 Unspecified bacterial pneumonia; E83.39 Other disorders of phosphorus metabolism; E88.09 Other disorders of plasma-protein metabolism, not elsewhere classified; F25.0 Schizoaffective disorder, bipolar type; R45.851 Suicidal ideations; D64.9 Anemia, unspecified; E11.9 Type 2 diabetes mellitus without complications; F29 Unspecified psychosis not due to a substance or known physiological condition; J44.0 Chronic obstructive pulmonary disease with (acute) lower respiratory infection; J44.1 Chronic obstructive pulmonary disease with (acute) exacerbation; Z20.822 Contact with and (suspected) exposure to COVID-19; I10 Essential (primary) hypertension; Z91.040 Latex allergy status; Z88.2 Allergy status to sulfonamides; Z88.8 Allergy status to other drugs, medicaments and biological substances; Z91.018 Allergy to other foods; G89.4 Chronic pain syndrome; K27.9 Peptic ulcer, site unspecified, unspecified as acute or chronic, without hemorrhage or perforation; F17.210 Nicotine dependence, cigarettes, uncomplicated; B19.20 Unspecified viral hepatitis C without hepatic coma; Z79.01 Long term (current) use of anticoagulants; Z86.718 Personal history of other venous thrombosis and embolism; Y95 Nosocomial condition; Z74.09 Other reduced mobility; Z99.3 Dependence on wheelchair; K44.9 Diaphragmatic hernia without obstruction or gangrene; F31.9 Bipolar disorder, unspecified; E86.1 Hypovolemia; E78.00 Pure hypercholesterolemia, unspecified; D75.839 Thrombocytosis, unspecified; E83.42 Hypomagnesemia; F25.9 Schizoaffective disorder, unspecified; E87.5 Hyperkalemia; J98.4 Other disorders of lung; R91.8 Other nonspecific abnormal finding of lung field; R79.89 Other specified abnormal findings of blood chemistry
CPT/HCPCS: 36410; 36415; 36600; 71045-TC; 71260-TC; 80048-TC; 80076-TC; 80202-TC; 81001; 82164; 82378; 82607-TC; 82728-TC; 82784; 82803-TC; 82962-TC; 83540-TC; 83605-TC; 83615-TC; 83735-TC; 83880; 84100-TC; 84155; 84165; 84443-TC; 84484-TC; 85025-TC; 85378-TC; 85730-TC; 86140-TC; 86225; 86235; 86300; 86304; 86334; 86431-TC; 86480; 86704; 86803; 87040-TC; 87081-TC; 87102-TC; 87116; 87206; 87340; 87522; 87806; 87899; 93307-TC; 93970-TC; 94640-TC; 94799-TC; A4216; A9563; C9113; C9803; G0378; J0692; J0696; J1644; J1650; J1815; J1956; J2248; J2405; J2920; J2930; J3370; J3490; J7030; J7040; J7050; J7060; Q9967